=== PATIENT | female | born 1990 | race Two or more races ===

== ENCOUNTER 2019-03-05 18:07 | Inpatient (IN) | payer OTHER ==
[2019-03-05 20:16] VITALS: BMI 39.4
--- NOTE | 2019-03-05 20:47 | HP ---
COWS - Scale Resting Pulse: 0= [place] 80 or Below Sweatin= Chills/Flushing Restless Observation: 1= Difficult to Sit Still Pupil Size: 1= Pupils >than Normal Bone or Joint Aches: 2= Severe Diffuse Aches Runny Nose/ Eye Tearin= Constantly Teary/Runny GI Upset > 30mins: 1= Stomach Cramp Tremor Observation: 1= Tremor [place], Not Seen Yawning Observation: 1= 1-2x During Session Anxiety or Irritability: 4=Extreme Anxiety Goose Flesh Skin: 0=Smooth Skin COWS Score: 16 CIWA Score - Admission Criteria OASAS Guidelines: Admission for Medically Managed Detox: Requires at least one of the followin. CIWA greater than 12 2. Seizures within the past 24 hours 3. Delirium tremens within the past 24 hours 4. Hallucinations within the past 24 hours 5. Acute intervention needed for co occurring medical disorder 6. Acute intervention needed for co occurring psychiatric disorder 7. Severe withdrawal that cannot be handled at a lower level of care (continued vomiting, continued diarrhea, abnormal vital signs) requiring intravenous medication and/or fluids 8. Admission ROS [facility] Chief Complaint: withdrawal symptoms Allergies/Adverse Reactions: Allergies Allergy/AdvReac Type Severity Reaction Status Date / Time No Known Allergies Allergy Verified 03/05/19 19:58 History of Present Illness: 28 yo female, homeless, with hx of heroin IV, cocaine (IV) dependence is here seeking detox for opiate use d/t withdrawal symptoms. 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 utox positive for RADHA, FEN, MTD. [facility]. PMHX: + abscess (R) breast, LLE , asthma, anemia. Psych:PTSD, anxiety (dx at 14 yo), depression (lexapro). 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 overdose x9 , last episode seven months ago. Reports hx of falls d/t "nodding out while being high." Exam Limitations: No Limitations - Ebola screening Have you traveled outside of the country in the last 21 days: No (N) Have you had contact with anyone from an Ebola affected area: No Do you have a fever: No - Review of Systems Constitutional: Chills, Loss of Appetite, Changes in sleep (no sleep x 3 days) EENT: reports: Tearing, Nose Congestion Respiratory: reports: No Symptoms reported Cardiac: reports: No Symptoms Reported GI: reports: Poor Fluid Intake, Abdominal cramping : reports: No Symptoms Reported Musculoskeletal: reports: Back Pain Integumentary: reports: See HPI Neuro: reports: Headache, Dizziness Endocrine: reports: Flushing, Increased Thirst Hematology: reports: See HPI, Anemia Psychiatric: reports: Orientated x3, Anxious, Depressed Other Systems: Reviewed and Negative Patient History - Patient Medical History Hx Anemia: Yes (no blood transfusion ) Hx Asthma: Yes Hx Chronic Obstructive Pulmonary Disease (COPD): No Hx Cancer: No Hx Cardiac Disorders: No Hx Congestive Heart Failure: No Hx Hypertension: No Hx Hypercholesterolemia: No Hx Pacemaker: No HX Cerebrovascular Accident: No Hx Seizures: No Hx Dementia: No Hx Diabetes: No Hx Gastrointestinal Disorders: No Hx Liver Disease: No Hx Genitourinary Disorders: No Hx Sexually Transmitted Disorders: No Hx Renal Disease (ESRD): No Hx Thyroid Disease: No Hx Human Immunodeficiency Virus (HIV): No Hx Hepatitis C: No Hx Depression: Yes Hx Suicide Attempt: No Hx Bipolar Disorder: No - Patient Surgical History Past Surgical History: No - PPD History Previous Implant?: No Documented Results: Negative w/o proof PPD to be Administered?: Yes - Reproductive History Patient is a Female of Child Bearing Age (11 -55 yrs old): Yes Last Menstrual Period: 02/19/19 - Smoking Cessation Smoking history: Never smoked Have you smoked in the past 12 months: No Hx Chewing Tobacco Use: No Initiated information on smoking cessation: No - Substance & Tx. History Hx Alcohol Use: No Hx Substance Use: Yes Substance Use Type: Cocaine, Heroin Hx Substance Use Treatment: Yes (Last detox [facility] eight months ago ) - Substances abused Heroin Substance route: Injection Frequency: Daily Amount used: 15-20 BAGS Age of first use: 13 Date of last use: 03/05/19 Cocaine Substance route: Injection Frequency: Daily Amount used: 2 GRAMS Age of first use: 14 Date of last use: 03/05/19 Family Disease History - Family Disease History Family Disease History: CA: Father (), Mother (), Other: Sister ( , overdose ) Admission Physical Exam [facility] - Vital Signs Vital Signs: Vital Signs - 24 hr 03/05/19 19:54 Temperature 98.1 F Pulse Rate 74 Respiratory 18 Rate Blood Pressure 128/74 - Physical General Appearance: Yes: Appropriately Dressed, Moderate Distress, Obese, Sweating, Anxious HEENTM: Yes: Hearing grossly Normal, Normal ENT Inspection, Normocephalic, Pharynx Normal, Rhinorrhea (tearing) Respiratory: Yes: Chest Non-Tender, Lungs Clear, Normal Breath Sounds, No Respiratory Distress, No Accessory Muscle Use Neck: Yes: Within Normal Limits Breast: Yes: No Discharge, Other (abscess right breast) Cardiology: Yes: Regular Rhythm, Regular Rate Abdominal: Yes: Normal Bowel Sounds, Non Tender, Flat, Soft Genitourinary: Yes: Within Normal Limits Back: Yes: Normal Inspection Musculoskeletal: Yes: full range of Motion, Gait Steady, Pelvis Stable, Back pain Extremities: Yes: Erythema (+ abscess left lower extremity) Neurological: Yes: Fully Oriented, Alert, Motor Strength 5/5, Normal Mood/Affect , Depressed Affect (tearful during assessment) Integumentary: Yes: Normal Color, Warm, Diaphoresis Lymphatic: Yes: Within Normal Limits - Addiitonal Findings: Patient educated on safe sex practices, needle safety, and importance to connect needle exchange program. Patient to follow up with with primary care provider. - Diagnostic (1) IVDU (intravenous drug user) Current Visit: Yes Status: Acute (2) Cocaine dependence Current Visit: Yes Status: Acute Qualifiers: Substance use status: uncomplicated Qualified Code(s): F14.20 - Cocaine dependence, uncomplicated (3) Anemia Current Visit: Yes Status: Chronic Qualifiers: Anemia type: unspecified type Qualified Code(s): D64.9 - Anemia, unspecified (4) Asthma Current Visit: Yes Status: Chronic Qualifiers: Asthma severity: mild Asthma persistence: intermittent Asthma complication type: with acute exacerbation Qualified Code(s): J45.21 - Mild intermittent asthma with (acute) exacerbation (5) Opioid dependence with withdrawal Current Visit: Yes Status: Acute Cleared for Admission S - Detox or Rehab [facility] Level of Care: Medically Managed Detox Regimen/Protocol: Methadone Breathalyzer - Breathalyzer Breathalyzer: 0 POC Urine test - Test device test lot number: [id number] Expiration date: 07/26/20 - Control test control: Yes - Result Urine Test Results: Negative - NO line present Urine Drug Screen - Test Device Lot number: [id number] Expiration date: 02/23/20 - Control Is test valid?: Yes - Results Drug screen NEGATIVE: No Urine drug screen results: RADHA-Cocaine, FEN-Fentanyl, MTD-Methadone Inpatient Rehab Admission - Rehab Decision to Admit Inpatient rehab admission?: No
[2019-03-05] MEDS ORDERED: MENTHOL/PHENOL 1 EACH UD MM PRN (20:52)
[2019-03-05] MEDS ORDERED: MAGNESIUM CITRATE 300 ML BOTTLE PO PRN (20:52)
[2019-03-05] MEDS ORDERED: MELATONIN 5 MG TABLETS PO PRN (20:52)
[2019-03-05] MEDS ORDERED: ACETAMINOPHEN 325 MG TABLET (FP) PO PRN (20:52)
[2019-03-05] MEDS ORDERED: MAG HYDROX/AL HYDROX/SIMETH 30 ML UNIT-DOSE CUP PO PRN (20:52)
[2019-03-05] MEDS ORDERED: BISMUTH SUBSALICYLATE 524 MG/30 ML UD PO PRN (20:52)
[2019-03-05] MEDS ORDERED: MAGNESIUM HYDROX 2400MG/30ML ORAL SUSPENSION 30 ML CUP PO PRN (20:52)
[2019-03-05] MEDS ORDERED: IBUPROFEN 400 MG TABLET (FP) PO PRN (20:52)
[2019-03-05] MEDS ORDERED: METHOCARBAMOL 500 MG TABLET PO PRN (20:52)
[2019-03-05] MEDS ORDERED: METHADONE HCL 10 MG TABLET (FOR DETOX USE ONLY) PO ONE ×2 (20:55→23:00)
[2019-03-05] MEDS: CEPHALEXIN MONOHYDRATE 500 MG CAPSULE (UD) PO SCH (21:49)
[2019-03-05] MEDS: THIAMINE HCL 100 MG TABLET (FP) PO SCH (21:49)
[2019-03-05] MEDS: BACITRACIN 0.9 GM PACKET TP SCH (21:51)
[2019-03-05] MEDS: cloNIDine HCL 0.1 MG TABLET PO PRN (21:57)
[2019-03-05] MEDS: diazePAM 5 MG TABLET PO PRN (21:57)
[2019-03-05] MEDS: ACETAMINOPHEN 325 MG TABLET (FP) PO PRN (21:59)
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
[2019-03-06] MEDS ORDERED: METHADONE HCL 10 MG TABLET (FOR DETOX USE ONLY) PO ONE (10:00)
[2019-03-06] MEDS: CEPHALEXIN MONOHYDRATE 500 MG CAPSULE (UD) PO SCH ×2 (10:13→22:19)
[2019-03-06] MEDS: PRENATAL VITAMINS W/ FOLIC ACID TABLET (FP) PO SCH (10:13)
[2019-03-06] MEDS: BACITRACIN 0.9 GM PACKET TP SCH ×2 (10:13→22:19)
[2019-03-06] MEDS: diazePAM 5 MG TABLET PO PRN ×2 (10:13→22:22)
[2019-03-06] MEDS: cloNIDine HCL 0.1 MG TABLET PO PRN ×2 (10:16→22:22)
[2019-03-06 10:18] LABS: HEMATOCRIT 31.2 % (32.4-45.2); HEMOGLOBIN 9.4 GM/dL (10.7-15.3); MCHC 30.2 g/dl (32.0-36.0); MEAN CELL VOLUME 58.4 fl (80-96); MEAN PLT VOLUME 9.3 fl (7.5-11.1); PLATELET COUNT 432 K/MM3 (134-434); RBC 5.35 M/mm3 (3.60-5.2); RDW 18.8 % (11.6-15.6); WHITE BLOOD COUNT 9.4 K/mm3 (4.0-10.0)
[2019-03-06 10:31] LABS: ALBUMIN 2.9 g/dl (3.4-5.0); ALK PHOS 137 U/L (45-117); ANION GAP 3 MMOL/L (8-16); BILIRUBIN,TOTAL 0.5 mg/dL (0.2-1); BLOOD UREA NITROGEN 18 mg/dL (7-18); CALCIUM 8.6 mg/dL (8.5-10.1); CHLORIDE 107 mmol/L (98-107); CO2 29 mmol/L (21-32); CREATININE 0.5 mg/dL (0.55-1.3); GLUCOSE,RANDOM 81 mg/dL (74-106); SGOT/AST 100 U/L (15-37); SGPT/ALT 110 U/L (13-61); SODIUM 139 mmol/L (136-145); TOT PROT 6.8 g/dl (6.4-8.2)
[2019-03-06 10:43] LABS: MCH 17.7 pg (25.7-33.7)
--- NOTE | 2019-03-06 14:46 | PN ---
S COWS - Scale Resting Pulse: 0= [place] 80 or Below Sweatin= Chills/Flushing Restless Observation: 1= Difficult to Sit Still Pupil Size: 1= Pupils >than Normal Bone or Joint Aches: 1= Mild Discomfort Runny Nose/ Eye Tearin= Nasal Congestion GI Upset > 30mins: 1= Stomach Cramp Tremor Observation of Outstretched Hands: 2= Slight Tremor Visible Yawning Observation: 2= >3x During Session Anxiety or Irritability: 2=Irritable/Anxious Goose Flesh Skin: 0=Smooth Skin COWS Score: 12 S Progress Note (SOAP) Subjective: discuss medication assisted treatment maintenance program Objective: 03/06/19 14:43 Vital Signs Temperature 98.6 F 03/06/19 13:24 Pulse Rate 75 03/06/19 13:24 Respiratory Rate 16 03/06/19 13:24 Blood Pressure 105/65 03/06/19 13:24 O2 Sat by Pulse Oximetry (%) Laboratory Last Values WBC 9.4 K/mm3 (4.0-10.0) 03/06/19 07:00 RBC 5.35 M/mm3 (3.60-5.2) H 03/06/19 07:00 Hgb 9.4 GM/dL (10.7-15.3) L 03/06/19 07:00 Hct 31.2 % (32.4-45.2) L 03/06/19 07:00 MCV 58.4 fl (80-96) L 03/06/19 07:00 MCH 17.7 pg (25.7-33.7) L 03/06/19 07:00 MCHC 30.2 g/dl (32.0-36.0) L 03/06/19 07:00 RDW 18.8 % (11.6-15.6) H 03/06/19 07:00 Plt Count 432 K/MM3 (134-434) 03/06/19 07:00 MPV 9.3 fl (7.5-11.1) 03/06/19 07:00 Sodium 139 mmol/L (136-145) 03/06/19 07:00 Potassium 4.0 mmol/L (3.5-5.1) 03/06/19 07:00 Chloride 107 mmol/L (98-107) 03/06/19 07:00 Carbon Dioxide 29 mmol/L (21-32) 03/06/19 07:00 Anion Gap 3 MMOL/L (8-16) L 03/06/19 07:00 BUN 18 mg/dL (7-18) 03/06/19 07:00 Creatinine 0.5 mg/dL (0.55-1.3) L 03/06/19 07:00 Creat Clearance w eGFR 145.87 (>60) 03/06/19 07:00 Random Glucose 81 mg/dL (74-106) 03/06/19 07:00 Calcium 8.6 mg/dL (8.5-10.1) 03/06/19 07:00 Total Bilirubin 0.5 mg/dL (0.2-1) 03/06/19 07:00 AST 100 U/L (15-37) H 03/06/19 07:00 ALT 110 U/L (13-61) H 03/06/19 07:00 Alkaline Phosphatase 137 U/L (45-117) H 03/06/19 07:00 Total Protein 6.8 g/dl (6.4-8.2) 03/06/19 07:00 Albumin 2.9 g/dl (3.4-5.0) L 03/06/19 07:00 RPR Titer Nonreactive (NONREACTIVE) 03/06/19 07:00 HIV 1&2 Antibody Screen Negative 03/06/19 07:00 HIV P24 Antigen Negative 03/06/19 07:00 lab noted repeat ast Assessment: 03/06/19 14:49 opiate withdrawal sx Plan: continue detox
[2019-03-06] MEDS: QUEtiapine FUMARATE 50 MG TABLET PO SCH (22:19)
[2019-03-06] MEDS: THIAMINE HCL 100 MG TABLET (FP) PO SCH (22:19)
[2019-03-06] MEDS: ACETAMINOPHEN 325 MG TABLET (FP) PO PRN (22:24)
[2019-03-07] MEDS ORDERED: METHADONE HCL 10 MG TABLET (FOR DETOX USE ONLY) PO ONE (10:00)
[2019-03-07] MEDS: CEPHALEXIN MONOHYDRATE 500 MG CAPSULE (UD) PO SCH ×2 (10:18→22:14)
[2019-03-07] MEDS: diazePAM 5 MG TABLET PO PRN ×3 (10:18→22:14)
[2019-03-07] MEDS: cloNIDine HCL 0.1 MG TABLET PO PRN ×2 (10:18→17:12)
[2019-03-07] MEDS: PRENATAL VITAMINS W/ FOLIC ACID TABLET (FP) PO SCH (10:18)
[2019-03-07] MEDS: BACITRACIN 0.9 GM PACKET TP SCH ×2 (10:18→22:14)
--- NOTE | 2019-03-07 16:50 | PN ---
S COWS - Scale Resting Pulse: 2= [place] 101-120 Sweatin= Chills/Flushing Restless Observation: 0= Sits Still Pupil Size: 0= Normal to Room Light Bone or Joint Aches: 2= Severe Diffuse Aches Runny Nose/ Eye Tearin= None GI Upset > 30mins: 0= None Tremor Observation of Outstretched Hands: 0= None Yawning Observation: 1= 1-2x During Session Anxiety or Irritability: 2=Irritable/Anxious Goose Flesh Skin: 3=Piloerection COWS Score: 11 S Progress Note (SOAP) Subjective: Fatigue, Anxious, Body Aches, Interrupted Sleep. Objective: PATIENT A & O X 3. IN NO ACUTE DISTRESS. 03/07/19 16:49 Vital Signs Temperature 98.0 F 03/07/19 13:15 Pulse Rate 97 H 03/07/19 13:15 Respiratory Rate 18 03/07/19 13:15 Blood Pressure 122/71 03/07/19 13:15 O2 Sat by Pulse Oximetry (%) Laboratory Tests 03/06/19 03/06/19 03/06/19 07:00 07:00 07:00 WBC 9.4 RBC 5.35 H Hgb 9.4 L Hct 31.2 L MCV 58.4 L MCH 17.7 L MCHC 30.2 L RDW 18.8 H Plt Count 432 MPV 9.3 Sodium 139 Potassium 4.0 Chloride 107 Carbon Dioxide 29 Anion Gap 3 L BUN 18 Creatinine 0.5 L Creat Clearance w eGFR 145.87 Random Glucose 81 Calcium 8.6 Total Bilirubin 0.5 AST 100 H ALT 110 H Alkaline Phosphatase 137 H Total Protein 6.8 Albumin 2.9 L RPR Titer Hep C Ab Diagnostic HIV 1&2 Antibody Screen Negative HIV P24 Antigen Negative 03/06/19 03/06/19 03/07/19 07:00 07:00 07:00 WBC RBC Hgb Hct MCV MCH MCHC RDW Plt Count MPV Sodium Potassium Chloride Carbon Dioxide Anion Gap BUN Creatinine Creat Clearance w eGFR Random Glucose Calcium Total Bilirubin AST 88 H ALT Alkaline Phosphatase Total Protein Albumin RPR Titer Nonreactive Hep C Ab Diagnostic 0.9 HIV 1&2 Antibody Screen HIV P24 Antigen LABS NOTED. PATIENT REPORTED HISTORY OF ANEMIA ON ADMISSION TO DETOX. 03/07/19 16:50 Assessment: 03/07/19 16:49 WITHDRAWAL SYMPTOMS. Plan: CONTINUE DETOX. INCREASE DAILY PO FLUID INTAKE. FEOSOL, 325 MG PO TIDCM. REPEAT CBC TOMORROW AM FOR ANEMIA NOTED ON DETOX ADMISSION LABS.
[2019-03-07] MEDS: FERROUS SO4 325 MG TABLET (FP) PO SCH (17:12)
[2019-03-07] MEDS: ACETAMINOPHEN 325 MG TABLET (FP) PO PRN (17:12)
[2019-03-07] MEDS: QUEtiapine FUMARATE 50 MG TABLET PO SCH (22:14)
[2019-03-07] MEDS: THIAMINE HCL 100 MG TABLET (FP) PO SCH (22:14)
[2019-03-08] MEDS: diazePAM 5 MG TABLET PO PRN (05:46)
[2019-03-08] MEDS: ACETAMINOPHEN 325 MG TABLET (FP) PO PRN (05:47)
[2019-03-08] MEDS: PRENATAL VITAMINS W/ FOLIC ACID TABLET (FP) PO SCH (09:19)
[2019-03-08] MEDS: BACITRACIN 0.9 GM PACKET TP SCH (09:19)
[2019-03-08] MEDS: FERROUS SO4 325 MG TABLET (FP) PO SCH (09:19)
[2019-03-08] MEDS: CEPHALEXIN MONOHYDRATE 500 MG CAPSULE (UD) PO SCH (09:19)
[2019-03-08 09:41] VITALS: BP 116/69; PULSE 96; TEMP 96.8
[2019-03-08] MEDS ORDERED: METHADONE HCL 10 MG TABLET (FOR DETOX USE ONLY) PO ONE (10:00)
--- NOTE | 2019-03-08 14:41 | PN ---
[facility] Progress Note (SOAP) Subjective: Fatigue, Body Aches, Anxious, Interrupted Sleep. Objective: PATIENT A & O X 3, OBSERVED AMBULATING ON UNIT. IN NO ACUTE DISTRESS. 03/08/19 14:42 Vital Signs Temperature 96.8 F L 03/08/19 09:20 Pulse Rate 96 H 03/08/19 09:20 Respiratory Rate 18 03/08/19 09:20 Blood Pressure 116/69 03/08/19 09:20 O2 Sat by Pulse Oximetry (%) Laboratory Tests 03/06/19 03/06/19 03/06/19 07:00 07:00 07:00 WBC 9.4 RBC 5.35 H Hgb 9.4 L Hct 31.2 L MCV 58.4 L MCH 17.7 L MCHC 30.2 L RDW 18.8 H Plt Count 432 MPV 9.3 Sodium 139 Potassium 4.0 Chloride 107 Carbon Dioxide 29 Anion Gap 3 L BUN 18 Creatinine 0.5 L Creat Clearance w eGFR 145.87 Random Glucose 81 Calcium 8.6 Total Bilirubin 0.5 AST 100 H ALT 110 H Alkaline Phosphatase 137 H Total Protein 6.8 Albumin 2.9 L RPR Titer Hep C Ab Diagnostic HIV 1&2 Antibody Screen Negative HIV P24 Antigen Negative 03/06/19 03/06/19 03/07/19 07:00 07:00 07:00 WBC RBC Hgb Hct MCV MCH MCHC RDW Plt Count MPV Sodium Potassium Chloride Carbon Dioxide Anion Gap BUN Creatinine Creat Clearance w eGFR Random Glucose Calcium Total Bilirubin AST 88 H ALT Alkaline Phosphatase Total Protein Albumin RPR Titer Nonreactive Hep C Ab Diagnostic 0.9 HIV 1&2 Antibody Screen HIV P24 Antigen LABS NOTED. PATIENT REFUSED TO HAVE REPEAT CBC DRAWN EARLIER THIS AM. PATIENT REPORTS HISTORY OF ANEMIA. 03/08/19 14:43 Assessment: 03/08/19 14:42 WITHDRAWAL SYMPTOMS. ANEMIA. ELEVATED LIVER ENZYMES. 03/08/19 14:44 Plan: CONTINUE DETOX. CONTINUE FEOSOL TIDCM.
--- NOTE | 2019-03-08 14:50 | DS ---
[facility] Detox Discharge Summary Admission Date: 03/05/19 Discharge Date: 03/08/19 - History Present History: Cocaine Dependence, Opioid Dependence Additional Comments: DESPITE EFFORTS BY CONTRACTS LAW PROFESSOR AND BY NURSING STAFF TO ADDRESS PATIENT'S MEDICAL NEEDS / CONCERNS, PATIENT DOES NOT WISH TO REMAIN TO COMPLETE DETOX REGIMEN. PATIENT NOTES THAT SHE INSISTS ON LEAVING BECAUSE OTHER PATIENT ON DETOX UNIT WHO IS BEING DISCHARGED TODAY IS LEAVING AND SHE WILL NOT REMAIN ON DETOX UNIT WITHOUT HIM THERE. RISKS OF LEAVING DETOX UNIT AGAINST MEDICAL ADVICE AND PRIOR TO COMPLETION OF DETOX REGIMEN EXPLAINED TO PATIENT. PATIENT ADVISED TO GO IMMEDIATELY TO NEAREST ER SHOULD ANY INTOLERABLE WITHDRAWAL / DETOX SYMPTOMS DEVELOP AT ANY TIME. PRESCRIPTIONS FOR REMAINDER OF FULL COURSE OF ANTIBIOTIC ( KEFLEX) PRESCRIBED FOR PATIENT FOR ABSCESS OF BREAST WHILE SHE WAS ADMITTED FOR DETOX AND FOLLOW-UP [id number] FOR FEOSOL (PRESCRIBED FOR ANEMIA NOTED ON DETOX ADMISSION LAB ASSESSMENT SENT TO [facility], [place], [place] (AT PATIENT'S REQUEST). PATIENT ADVISED TO COMPLETE THE FULL COURSE OF BOTH MEDICATIONS AND TO FOLLOW-UP WITH SPRAY MAKER SOON POSSIBLE FOR HISTORY OF BREAST ABSCESS, FOR ELAVTED LIVER ENZYMES NOTED ON DETOX ADMISSION LABORATORY ASSESSMENT, AND FOR HISTORY OF ANEMIA. PATIENT VERBALIZED UNDERSTANDING OF ALL INFORMATION / RECOMMENDATIONS PRESENTED TO HER PRIOR TO DEPARTURE FROM DETOX UNIT. COPIES OF RESULTS OF ALL LABS DRAWN WHILE ADMITTED FOR DETOX GIVEN TO PATIENT AT TIME OF DISCHARGE FROM DETOX UNIT. PATIENT LEFT DETOX UNIT IN STABLE MEDICAL CONDITION. Pertinent Past History: History Of Anemia, Asthma, Intravenous Drug User (I.V.D.U.), History of Depression, Elevated Liver Enzymes. - Physical Exam Results Vital Signs: Vital Signs Temperature 96.8 F L 03/08/19 09:20 Pulse Rate 96 H 03/08/19 09:20 Respiratory Rate 18 03/08/19 09:20 Blood Pressure 116/69 03/08/19 09:20 O2 Sat by Pulse Oximetry (%) Pertinent Admission Physical Exam Findings: WITHDRAWAL SYMPTOMS. Laboratory Tests 03/06/19 03/06/19 03/06/19 07:00 07:00 07:00 WBC 9.4 RBC 5.35 H Hgb 9.4 L Hct 31.2 L MCV 58.4 L MCH 17.7 L MCHC 30.2 L RDW 18.8 H Plt Count 432 MPV 9.3 Sodium 139 Potassium 4.0 Chloride 107 Carbon Dioxide 29 Anion Gap 3 L BUN 18 Creatinine 0.5 L Creat Clearance w eGFR 145.87 Random Glucose 81 Calcium 8.6 Total Bilirubin 0.5 AST 100 H ALT 110 H Alkaline Phosphatase 137 H Total Protein 6.8 Albumin 2.9 L RPR Titer Hep C Ab Diagnostic HIV 1&2 Antibody Screen Negative HIV P24 Antigen Negative 03/06/19 03/06/19 03/07/19 07:00 07:00 07:00 WBC RBC Hgb Hct MCV MCH MCHC RDW Plt Count MPV Sodium Potassium Chloride Carbon Dioxide Anion Gap BUN Creatinine Creat Clearance w eGFR Random Glucose Calcium Total Bilirubin AST 88 H ALT Alkaline Phosphatase Total Protein Albumin RPR Titer Nonreactive Hep C Ab Diagnostic 0.9 HIV 1&2 Antibody Screen HIV P24 Antigen LABS NOTED. - Treatment Hospital Course: Detox Protocol Followed, Detoxed Safely - Medication Discharge Medications: Ambulatory Orders Cephalexin [Keflex] 500 mg PO BID 7 Days #14 capsule 03/08/19 Ferrous Sulfate [Feosol] 325 mg PO BID 7 Days #14 tablet 03/08/19 Naloxone HCl [Narcan] 4 mg NS ASDIR #1 kit 03/08/19 - Diagnosis (1) Cocaine dependence Status: Acute Qualifiers: Substance use status: uncomplicated Qualified Code(s): F14.20 - Cocaine dependence, uncomplicated (2) Elevated liver enzymes Status: Acute (3) IVDU (intravenous drug user) Status: Acute (4) Opioid dependence with withdrawal Status: Acute (5) Anemia Status: Chronic Qualifiers: Anemia type: unspecified type Qualified Code(s): D64.9 - Anemia, unspecified (6) Asthma Status: Chronic Qualifiers: Asthma severity: mild Asthma persistence: intermittent Asthma complication type: with acute exacerbation Qualified Code(s): J45.21 - Mild intermittent asthma with (acute) exacerbation (7) Substance induced mood disorder Status: Acute (8) Substance-induced sleep disorder Status: Acute - AMA Did Patient Leave Against Medical Advice: Yes (PATIENT DID NOT WISH TO REMAIN TO COMPLETE DETOX REGIMEN.)
[2019-03-09] MEDS ORDERED: METHADONE HCL 5 MG TABLET (FOR DETOX USE ONLY) PO ONE (06:00)
== END 2019-03-08 09:30 | disposition left against medical advice (07) | DRG 770 ==
LOC: YASAS 18:07 → Y3N 21:07
PROVIDERS: ADMIT Surgery; ATTEND Surgery
PROC: HZ2ZZZZ Detoxification Services for Substance Abuse Treatment (ICD-10-PCS; principal; 2019-03-05)
DX: F11.23 Opioid dependence with withdrawal (principal); F14.20 Cocaine dependence, uncomplicated; F19.24 Other psychoactive substance dependence with psychoactive substance-induced mood disorder; F19.282 Other psychoactive substance dependence with psychoactive substance-induced sleep disorder; J45.21 Mild intermittent asthma with (acute) exacerbation; R94.5 Abnormal results of liver function studies; D64.9 Anemia, unspecified; E66.9 Obesity, unspecified; Z68.39 Body mass index [BMI] 39.0-39.9, adult; Z59.0 Homelessness
CPT/HCPCS: 36415; 80053; 84450; 85027; 86593; 86803; 87389; J0735

== ENCOUNTER 2019-06-15 12:50 | Inpatient (IN) | payer BC ==
[2019-06-15 13:35] VITALS: BMI 42.5
--- NOTE | 2019-06-15 15:10 | HP ---
COWS - Scale Resting Pulse: 2= [place] 101-120 Sweatin=Flushed/Facial Moisture Restless Observation: 1= Difficult to Sit Still Pupil Size: 2= Moderately Dilated Bone or Joint Aches: 2= Severe Diffuse Aches Runny Nose/ Eye Tearin= Runny Nose/Eyes GI Upset > 30mins: 1= Stomach Cramp Tremor Observation: 2= Slight Tremor Visible Yawning Observation: 0= None Anxiety or Irritability: 2=Irritable/Anxious Goose Flesh Skin: 0=Smooth Skin COWS Score: 16 CIWA Score Nausea/Vomitin Muscle Tremors: 2 Anxiety: 3 Agitation: 2 Paroxysmal Sweats: 3 Orientation: 0-Oriented Tacttile Disturbances: 0-None Auditory Disturbances: 0-None Visual Disturbances: 1-Very Mild Sensitivity Headache: 2-Mild CIWA-Ar Total Score: 16 - Admission Criteria [facility] Guidelines: Admission for Medically Managed Detox: Requires at least one of the followin. CIWA greater than 12 2. Seizures within the past 24 hours 3. Delirium tremens within the past 24 hours 4. Hallucinations within the past 24 hours 5. Acute intervention needed for co occurring medical disorder 6. Acute intervention needed for co occurring psychiatric disorder 7. Severe withdrawal that cannot be handled at a lower level of care (continued vomiting, continued diarrhea, abnormal vital signs) requiring intravenous medication and/or fluids 8. 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 - Ebola screening Have you traveled outside of the country in the last 21 days: No (N) Have you had contact with anyone from an Ebola affected area: No Do you have a fever: No - Review of Systems Constitutional: Loss of Appetite, Changes in sleep EENT: reports: Tearing Respiratory: reports: No Symptoms reported Cardiac: reports: No Symptoms Reported GI: reports: Abdominal cramping : reports: No Symptoms Reported Musculoskeletal: reports: Muscle Pain Integumentary: reports: Other (MULTIPLE INDURATED EERYTHEMATOUS LESIONS) Endocrine: reports: No Symptoms Reported Hematology: reports: No Symptoms Reported Psychiatric: reports: Anxious Patient History - Patient Medical History Hx Anemia: Yes (no blood transfusion ) Hx Asthma: Yes Hx Chronic Obstructive Pulmonary Disease (COPD): No Hx Cancer: No Hx Cardiac Disorders: No Hx Congestive Heart Failure: No Hx Hypertension: No Hx Hypercholesterolemia: No Hx Pacemaker: No HX Cerebrovascular Accident: No Hx Seizures: No Hx Dementia: No Hx Diabetes: No Hx Gastrointestinal Disorders: No Hx Liver Disease: No Hx Genitourinary Disorders: No Hx Sexually Transmitted Disorders: No Hx Renal Disease (ESRD): No Hx Thyroid Disease: No Hx Human Immunodeficiency Virus (HIV): No Hx Hepatitis C: No Hx Depression: Yes Hx Suicide Attempt: No Hx Bipolar Disorder: Yes Hx Schizophrenia: No - Patient Surgical History Past Surgical History: No Hx Neurologic Surgery: No Hx Cataract Extraction: No Hx Cardiac Surgery: No Hx Lung Surgery: No Hx Breast Surgery: No Hx Breast Biopsy: No Hx Abdominal Surgery: No Hx Appendectomy: No Hx Cholecystectomy: No Hx Genitourinary Surgery: No Hx Section: No Hx Orthopedic Surgery: No - PPD History Date: 03/07/19 - Reproductive History Patient is a Female of Child Bearing Age (11 -55 yrs old): Yes Last Menstrual Period: 06/09/19 Patient : No () - Smoking Cessation Smoking history: Never smoked Have you smoked in the past 12 months: No Hx Chewing Tobacco Use: No - Substances abused Heroin Substance route: Injection Frequency: Daily Amount used: 10-15 BAGS Age of first use: 13 Date of last use: 06/15/19 Cocaine Substance route: Injection Frequency: Daily Amount used: 2 GRAMS Age of first use: 14 Date of last use: 06/15/19 Alprazolam (Xanax) Substance route: Oral Frequency: Daily Amount used: 6-10 bars of 2mg Age of first use: 14 Date of last use: 06/14/19 Family Disease History - Family Disease History Family Disease History: CA: Father (), Mother (), Other: Sister ( , overdose ) Admission Physical Exam BHS - Vital Signs Vital Signs: Vital Signs - 24 hr 06/15/19 06/15/19 13:20 14:42 Temperature 98.0 F 98.0 F Pulse Rate 108 H 108 H Respiratory 18 18 Rate Blood Pressure 126/80 126/80 - Physical General Appearance: Yes: Sweating, Anxious HEENTM: Yes: EOMI Respiratory: Yes: Chest Non-Tender, Lungs Clear Neck: Yes: No masses,lesions,Nodules Breast: Yes: Mass Present right breast Cardiology: Yes: Within Normal Limits Abdominal: Yes: Increased Bowel Sounds Genitourinary: Yes: Within Normal Limits Back: Yes: Muscle Spasm Musculoskeletal: Yes: Within Normal Limits Extremities: Yes: Other Integumentary: Yes: Track [place] (DIFFUSE ABCESS MISS AND INJECTION SITE INFLAMMATION, DRAINAGE FROM BL AC FOSSAE) Lymphatic: Yes: Within Normal Limits - Diagnostic (1) Cocaine dependence Current Visit: Yes Status: Acute Qualifiers: Substance use status: uncomplicated Qualified Code(s): F14.20 - Cocaine dependence, uncomplicated (2) Elevated liver enzymes Current Visit: No Status: Chronic (3) IVDU (intravenous drug user) Current Visit: Yes Status: Acute (4) Opioid dependence with withdrawal Current Visit: Yes Status: Acute (5) Abscess Current Visit: Yes Status: Acute Cleared for Admission S - Detox or Rehab [facility] Level of Care: Medically Supervised Breathalyzer - Breathalyzer Breathalyzer: 0 POC Urine test - Test device test lot number: [id number] Expiration date: 07/26/20 - Control test control: Yes Urine Drug Screen - Test Device Lot number: [id number] Expiration date: 03/25/21 - Control Is test valid?: Yes - Results Drug screen NEGATIVE: No Urine drug screen results: RADHA-Cocaine, FEN-Fentanyl, BZO-Benzodiazepines, BUP- Suboxone Inpatient Rehab Admission - Rehab Decision to Admit Inpatient rehab admission?: No
[2019-06-15] MEDS ORDERED: MAGNESIUM CITRATE 300 ML BOTTLE PO PRN (15:26)
[2019-06-15] MEDS ORDERED: MAGNESIUM HYDROX 2400MG/30ML ORAL SUSPENSION 30 ML CUP PO PRN (15:26)
[2019-06-15] MEDS ORDERED: METHADONE HCL 10 MG TABLET (FOR DETOX USE ONLY) PO ONE (15:26)
[2019-06-15] MEDS ORDERED: MENTHOL/PHENOL 1 EACH UD MM PRN (15:26)
[2019-06-15] MEDS ORDERED: MAG HYDROX/AL HYDROX/SIMETH 30 ML UNIT-DOSE CUP PO PRN (15:26)
[2019-06-15] MEDS ORDERED: ACETAMINOPHEN 325 MG TABLET (FP) PO PRN ×2 (15:26)
[2019-06-15] MEDS ORDERED: hydrOXYzine PAMOATE 25 MG CAPSULE (FP) PO PRN (15:26)
[2019-06-15] MEDS ORDERED: cloNIDine HCL 0.1 MG TABLET PO PRN (15:26)
[2019-06-15] MEDS ORDERED: BISMUTH SUBSALICYLATE 524 MG/30 ML UD PO PRN (15:26)
[2019-06-15] MEDS: diazePAM 5 MG TABLET PO PRN (16:56)
[2019-06-15] MEDS: GABAPENTIN 300 MG CAPSULE (FP) PO SCH ×2 (16:56→22:45)
[2019-06-15] MEDS: BACITRACIN 0.9 GM PACKET TP SCH ×2 (16:56→22:51)
[2019-06-15] MEDS: THIAMINE HCL 100 MG TABLET (FP) PO SCH (22:44)
[2019-06-15] MEDS: diazePAM 5 MG TABLET PO SCH (22:45)
[2019-06-15] MEDS: SULFAMETHOXAZOLE/TRIMETHOPRIM 800MG/160MG D.S. TABLET PO SCH (22:45)
[2019-06-15] MEDS: MELATONIN 5 MG TABLETS PO PRN (22:46)
[2019-06-15] MEDS: IBUPROFEN 400 MG TABLET (FP) PO PRN (22:47)
[2019-06-16] MEDS: diazePAM 5 MG TABLET PO SCH ×3 (06:09→21:49)
[2019-06-16] MEDS: IBUPROFEN 400 MG TABLET (FP) PO PRN (06:09)
[2019-06-16] MEDS: GABAPENTIN 300 MG CAPSULE (FP) PO SCH ×3 (06:09→21:49)
[2019-06-16] MEDS ORDERED: METHADONE HCL 10 MG TABLET (FOR DETOX USE ONLY) ONE (08:45)
[2019-06-16] MEDS ORDERED: METHADONE HCL 5 MG TABLET (FOR DETOX USE ONLY) ONE (08:45)
--- NOTE | 2019-06-16 09:38 | PN ---
S CIWA - CIWA Score Nausea/Vomitin-Mild Nausea/No Vomiting Muscle Tremors: 3 Anxiety: 3 Agitation: 3 Paroxysmal Sweats: 1-Minimal Palms Moist Orientation: 1-Uncertain about Date Tacttile Disturbances: 1-Very Mild Itch/Numbness Auditory Disturbances: 0-None Visual Disturbances: 0-None Headache: 0-None Present CIWA-Ar Total Score: 13 BHS COWS - Scale Resting Pulse: 0= [place] 80 or Below Sweatin= Chills/Flushing Restless Observation: 0= Sits Still Pupil Size: 0= Normal to Room Light Bone or Joint Aches: 1= Mild Discomfort Runny Nose/ Eye Tearin= Nasal Congestion GI Upset > 30mins: 1= Stomach Cramp Tremor Observation of Outstretched Hands: 2= Slight Tremor Visible Yawning Observation: 2= >3x During Session Anxiety or Irritability: 2=Irritable/Anxious Goose Flesh Skin: 3=Piloerection COWS Score: 13 S Progress Note (SOAP) Subjective: 29 years old female admitted on 06/15/19 for acute benzo and opiate withdrawal sx management \doing well with valium and methadone detox regimen discuss medication assisted treatment program Objective: 06/16/19 09:38 Vital Signs Temperature 97.1 F L 06/16/19 07:50 Pulse Rate 75 06/16/19 07:50 Respiratory Rate 20 06/16/19 07:50 Blood Pressure 101/66 06/16/19 07:50 O2 Sat by Pulse Oximetry (%) Laboratory Last Values POC Urine HCG, Qual Negative 06/15/19 14:43 06/16/19 09:39 admission lab ordered for 06/16/19 06/16/19 09:40 02/2019 lab noted Assessment: 06/16/19 09:41 benzo and opiate withdrawal sx Plan: continue benzo and opiate detox
[2019-06-16] MEDS ORDERED: METHADONE (DETOX) 20 MG, METHADONE (DETOX) 5 MG PO ONE (10:00)
[2019-06-16] MEDS: diazePAM 5 MG TABLET PO PRN (10:35)
[2019-06-16] MEDS: SULFAMETHOXAZOLE/TRIMETHOPRIM 800MG/160MG D.S. TABLET PO SCH ×2 (10:35→21:49)
[2019-06-16] MEDS: PRENATAL VITAMINS W/ FOLIC ACID TABLET (FP) PO SCH (10:35)
[2019-06-16] MEDS: BACITRACIN 0.9 GM PACKET TP SCH ×2 (10:36→21:51)
[2019-06-16] MEDS: THIAMINE HCL 100 MG TABLET (FP) PO SCH (21:49)
[2019-06-16] MEDS: MELATONIN 5 MG TABLETS PO PRN (21:50)
[2019-06-16 22:01] LABS: URINE APPEARANCE TURBID; URINE BILIRUBIN NEGATIVE (NEGATIVE); URINE COLOR YELLOW; URINE GLUCOSE (UA) NEGATIVE (NEGATIVE); URINE KETONE NEGATIVE (NEGATIVE); URINE LEUK ESTERASE NEGATIVE (NEGATIVE); URINE NITRITE NEGATIVE (NEGATIVE); URINE PROTEIN NEGATIVE (NEGATIVE)
[2019-06-17] MEDS: diazePAM 5 MG TABLET PO SCH ×2 (05:17→17:21)
[2019-06-17] MEDS: GABAPENTIN 300 MG CAPSULE (FP) PO SCH ×3 (05:17→22:09)
[2019-06-17] MEDS ORDERED: METHADONE HCL 10 MG TABLET (FOR DETOX USE ONLY) PO ONE (10:00)
--- NOTE | 2019-06-17 10:33 | PN ---
S CIWA - CIWA Score Nausea/Vomitin-Mild Nausea/No Vomiting Muscle Tremors: 3 Anxiety: 2 Agitation: 3 Paroxysmal Sweats: 1-Minimal Palms Moist Orientation: 0-Oriented Tacttile Disturbances: 0-None Auditory Disturbances: 0-None Visual Disturbances: 0-None Headache: 0-None Present CIWA-Ar Total Score: 10 BHS COWS - Scale Resting Pulse: 0= [place] 80 or Below Sweatin= Chills/Flushing Restless Observation: 0= Sits Still Pupil Size: 0= Normal to Room Light Bone or Joint Aches: 1= Mild Discomfort Runny Nose/ Eye Tearin= Nasal Congestion GI Upset > 30mins: 1= Stomach Cramp Tremor Observation of Outstretched Hands: 2= Slight Tremor Visible Yawning Observation: 2= >3x During Session Anxiety or Irritability: 2=Irritable/Anxious Goose Flesh Skin: 0=Smooth Skin COWS Score: 10 S Progress Note (SOAP) Subjective: 29 years old female admitted on 06/16/19 for acute opiate and benzo withdrawal sx management doing well with valium and methadone detox regimen less tremor mild body aches discuss aftercare with staff that prefers vip for benzo and opiate recovery discuss medication assisted treatment program Objective: 06/17/19 10:35 Vital Signs Temperature 98.4 F 06/17/19 09:33 Pulse Rate 64 06/17/19 09:33 Respiratory Rate 18 06/17/19 09:33 Blood Pressure 122/70 06/17/19 09:33 O2 Sat by Pulse Oximetry (%) Laboratory Last Values Urine Color Yellow 06/16/19 15:50 Urine Appearance Turbid 06/16/19 15:50 Urine pH 8.0 (5.0-8.0) 06/16/19 15:50 Ur Specific [place] 1.020 (1.010-1.035) 06/16/19 15:50 Urine Protein Negative (NEGATIVE) 06/16/19 15:50 Urine Glucose (UA) Negative (NEGATIVE) 06/16/19 15:50 Urine Ketones Negative (NEGATIVE) 06/16/19 15:50 Urine Blood Negative (NEGATIVE) 06/16/19 15:50 Urine Nitrite Negative (NEGATIVE) 06/16/19 15:50 Urine Bilirubin Negative (NEGATIVE) 06/16/19 15:50 Urine Urobilinogen 1.0 mg/dL (0.2-1.0) 06/16/19 15:50 Ur Leukocyte Esterase Negative (NEGATIVE) 06/16/19 15:50 POC Urine HCG, Qual Negative 06/15/19 14:43 06/17/19 10:36 lab see 02/2019 result Assessment: 06/17/19 10:36 benzo and opiate withdrawal sx Plan: continue benzo and opiate detox
[2019-06-17] MEDS: PRENATAL VITAMINS W/ FOLIC ACID TABLET (FP) PO SCH (10:53)
[2019-06-17] MEDS: SULFAMETHOXAZOLE/TRIMETHOPRIM 800MG/160MG D.S. TABLET PO SCH ×2 (10:54→22:09)
[2019-06-17] MEDS: diazePAM 5 MG TABLET PO PRN ×3 (10:54→22:10)
[2019-06-17] MEDS: BACITRACIN 0.9 GM PACKET TP SCH ×2 (10:56→22:09)
[2019-06-17] MEDS: METHOCARBAMOL 500 MG TABLET PO PRN (17:23)
[2019-06-17] MEDS: THIAMINE HCL 100 MG TABLET (FP) PO SCH (22:09)
[2019-06-17] MEDS: MELATONIN 5 MG TABLETS PO PRN (22:10)
[2019-06-18] MEDS: GABAPENTIN 300 MG CAPSULE (FP) PO SCH ×3 (05:59→22:31)
[2019-06-18] MEDS ORDERED: diazePAM 5 MG TABLET PO ONE (06:00)
[2019-06-18] MEDS ORDERED: METHADONE HCL 5 MG TABLET (FOR DETOX USE ONLY) ONE (09:48)
[2019-06-18] MEDS ORDERED: METHADONE HCL 10 MG TABLET (FOR DETOX USE ONLY) ONE (09:48)
[2019-06-18] MEDS ORDERED: METHADONE (DETOX) 10 MG, METHADONE (DETOX) 5 MG PO ONE (10:00)
[2019-06-18] MEDS: PRENATAL VITAMINS W/ FOLIC ACID TABLET (FP) PO SCH (10:19)
[2019-06-18] MEDS: SULFAMETHOXAZOLE/TRIMETHOPRIM 800MG/160MG D.S. TABLET PO SCH ×2 (10:19→22:31)
[2019-06-18] MEDS: diazePAM 5 MG TABLET PO PRN ×3 (10:19→22:33)
[2019-06-18] MEDS: BACITRACIN 0.9 GM PACKET TP SCH ×2 (10:20→22:30)
--- NOTE | 2019-06-18 11:28 | PN ---
[facility] CIWA - CIWA Score Nausea/Vomitin-Mild Nausea/No Vomiting Muscle Tremors: 3 Anxiety: 4-Mod. Anxious/Guarded Agitation: 2 Paroxysmal Sweats: 1-Minimal Palms Moist Orientation: 0-Oriented Tacttile Disturbances: 0-None Auditory Disturbances: 0-None Visual Disturbances: 0-None Headache: 1-Very Mild CIWA-Ar Total Score: 12 BHS COWS - Scale Resting Pulse: 0= [place] 80 or Below Sweatin= Chills/Flushing Restless Observation: 3= Extraneous Movement Pupil Size: 0= Normal to Room Light Bone or Joint Aches: 1= Mild Discomfort Runny Nose/ Eye Tearin= Constantly Teary/Runny GI Upset > 30mins: 1= Stomach Cramp Tremor Observation of Outstretched Hands: 2= Slight Tremor Visible Yawning Observation: 1= 1-2x During Session Anxiety or Irritability: 2=Irritable/Anxious Goose Flesh Skin: 0=Smooth Skin COWS Score: 15 [facility] Progress Note (SOAP) Subjective: Pt states she feels very anxious, and feels like she is in withdrawal, last dose of valium this morning for benzo detox, also on heroin detox. O: Vital Signs - 24 hr 06/17/19 06/17/19 06/17/19 14:01 18:01 21:40 Temperature 96.7 F L 100.1 F H 97.1 F L Pulse Rate 94 H 97 H 86 Respiratory 18 20 16 Rate Blood Pressure 102/61 107/66 108/68 06/18/19 06/18/19 06/18/19 00:30 03:30 06:33 Temperature 97.5 F L Pulse Rate 82 Respiratory 18 18 16 Rate Blood Pressure 102/63 06/18/19 09:22 Temperature 97.3 F L Pulse Rate 77 Respiratory 18 Rate Blood Pressure 108/72 tremulous anxious Laboratory Tests 06/15/19 06/16/19 14:43 15:50 Urine Color Yellow Urine Appearance Turbid Urine pH 8.0 Ur Specific [place] 1.020 Urine Protein Negative Urine Glucose (UA) Negative Urine Ketones Negative Urine Blood Negative Urine Nitrite Negative Urine Bilirubin Negative Urine Urobilinogen 1.0 Ur Leukocyte Esterase Negative POC Urine HCG, Qual Negative a/p: continue benzo and heroin detox protocols. Will continue lower dose valium prn for continued anxiety from benzo withdrawals CBC and CMP not done this admission- ordered for today
--- NOTE | 2019-06-18 13:09 | CONSULT ---
[facility] Psychiatric Consult - Data Date of interview: 06/18/19 Admission source: [facility] Identifying data: Second admission to [facility] for this 29 y/o female self-referred for detoxification treatment (heroin, cocaine, xanax). Interviewed at [address] [place] [address]. Patient is single, no children, domiciled (detention), unemployed and supported on food stamps. Substance Abuse History: Discussed in this session. Patient confirms current [facility] report on her addictions. Details as follows : Smoking history: Never smoked. Have you smoked in the past 12 months: No. Hx Chewing Tobacco Use: No. Substances abused. Heroin. Substance route: Injection. Frequency: Daily. Amount used: 10-15 BAGS. Age of first use: 13. Date of last use: 06/15. Cocaine. Substance route: Injection. Frequency: Daily. Amount used: 2 GRAMS. Age of first use: 14. Date of last use: 06/15/19. Alprazolam ( Xanax). Substance route: Oral. Frequency: Daily. Amount used: 6-10 bars of 2mg. Age of first use: 14. Date of last use: 06/14/19 Medical History: Remarkable for obesity, anemia and bronchial asthma. Psychiatric History: Patient denies history of psychiatric hospitalizations. Initial contact with a psychiatrist occurred at age 14 (to address mood dysregulation following biological mother's ). Patient reportedly dropped out of OPD care after 2-3 months. Over the years, Ms Rodrigues was treated with alprazolam, quetiapine and trazodone. She indicates that she gets her medications from frequent admissions to substance abuse treatment centers (detox /rehabs). Diagnosed with Bipolar Disorder and PTSD. Has recently been seeing a psychiatrist at [facility] for medication management (seroquel 50 mg/hs + remeron 15 mg/hs + buspar 7.5 mg/bid). Patient denies history of suicide attempts. Physical/Sexual Abuse/Trauma History: History of multiple deaths in the family ( sister of grug overdose; father of leukemia). Patient declines to discuss issues of abuse. Additional Comment: Urine drug screen results: RADHA-Cocaine, FEN-Fentanyl, BZO- Benzodiazepines, BUP-Suboxone. Noted. Mental Status Exam - Mental Status Exam Alert and Oriented to: Time, Place, Person Cognitive Function: Good Patient Appearance: Well Groomed (obese) Mood: Anxious, Apprehensive Affect: Mood Congruent, Normal Range Patient Behavior: Fatigued, Appropriate (friendly), Cooperative Speech Pattern: Clear, Appropriate Voice Loudness: Normal Thought Process: Intact, Goal Oriented Thought Disorder: Not Present Hallucinations: Denies Suicidal Ideation: Denies Homicidal Ideation: Denies Insight/Judgement: Poor Sleep: Poorly, Difficulty falling asleep Appetite: Good Gait/Station: Normal Psychiatric Findings - Problem List ([place] 1, 2,3) (1) Opioid dependence with withdrawal Current Visit: Yes Status: Acute (2) Cocaine dependence Current Visit: Yes Status: Chronic Qualifiers: Substance use status: uncomplicated Qualified Code(s): F14.20 - Cocaine dependence, uncomplicated (3) Benzodiazepine dependence Current Visit: Yes Status: Chronic (4) Substance induced mood disorder Current Visit: Yes Status: Chronic (5) History of posttraumatic stress disorder (PTSD) Current Visit: Yes Status: Chronic (6) History of bipolar disorder Current Visit: Yes Status: Chronic (7) Insomnia Current Visit: Yes Status: Chronic - Initial Treatment Plan Initial Treatment Plan: Psychoeducation. Sleep hygiene. Detoxification. Support. NA meetings. Relapse prevention (MAT) measures : discussed with the patient. Ms Rodrigues will be going to [facility] program upon completion of detoxification protocol. Medications : buspar 7.5 mg po bid + seroquel 50 mg po hs + remeron 15 mg po hs. Side effects/benefits of each drug are discussed with patient. Verbal consent given to MD. Jc.
[2019-06-18] MEDS: MIRTAZAPINE 15 MG TABLET (FP) PO SCH (22:31)
[2019-06-18] MEDS: THIAMINE HCL 100 MG TABLET (FP) PO SCH (22:31)
[2019-06-18] MEDS: QUEtiapine FUMARATE 50 MG TABLET PO SCH (22:31)
[2019-06-18] MEDS: busPIRone HCL 5 MG TABLET PO SCH (22:33)
[2019-06-19] MEDS: diazePAM 5 MG TABLET PO PRN ×3 (05:17→17:04)
[2019-06-19] MEDS: GABAPENTIN 300 MG CAPSULE (FP) PO SCH ×3 (05:17→22:07)
[2019-06-19] MEDS: BACITRACIN 0.9 GM PACKET TP SCH ×2 (09:48→22:09)
[2019-06-19] MEDS: SULFAMETHOXAZOLE/TRIMETHOPRIM 800MG/160MG D.S. TABLET PO SCH ×2 (09:50→22:07)
[2019-06-19] MEDS ORDERED: METHADONE HCL 10 MG TABLET (FOR DETOX USE ONLY) PO ONE (10:00)
[2019-06-19 10:45] LABS: EOS % 7.5 % (0-4.5); HEMATOCRIT 33.7 % (32.4-45.2); HEMOGLOBIN 10.7 GM/dL (10.7-15.3); LYMPH % 33.3 % (8-40); MCHC 31.7 g/dl (32.0-36.0); MEAN CELL VOLUME 59.6 fl (80-96); MEAN PLT VOLUME 9.3 fl (7.5-11.1); MONO % 8.8 % (3.8-10.2); NEUT % 49.4 % (42.8-82.8); PLATELET COUNT 451 K/MM3 (134-434); RBC 5.65 M/mm3 (3.60-5.2); RDW 17.3 % (11.6-15.6); WHITE BLOOD COUNT 7.9 K/mm3 (4.0-10.0)
[2019-06-19 10:52] LABS: ALBUMIN 3.2 g/dl (3.4-5.0); BILIRUBIN,TOTAL 0.6 mg/dL (0.2-1); BLOOD UREA NITROGEN 16.9 mg/dL (7-18); CALCIUM 9.1 mg/dL (8.5-10.1); CREATININE 0.6 mg/dL (0.55-1.3); POTASSIUM 4.1 mmol/L (3.5-5.1); TOT PROT 7.4 g/dl (6.4-8.2)
[2019-06-19 10:56] LABS: MCH 18.9 pg (25.7-33.7)
[2019-06-19] MEDS: PRENATAL VITAMINS W/ FOLIC ACID TABLET (FP) PO SCH (12:00)
[2019-06-19] MEDS: busPIRone HCL 5 MG TABLET PO SCH ×2 (12:00→22:06)
[2019-06-19 13:13] LABS: ANISOCYTOSIS 2+; MACROCYTOSIS 0; OVALOCYTE 1+; PLATELET ESTIMATE NORMAL
--- NOTE | 2019-06-19 15:36 | PN ---
S CIWA - CIWA Score Nausea/Vomitin-No Nausea/No Vomiting Muscle Tremors: 2 Anxiety: 2 Agitation: 2 Paroxysmal Sweats: No Perspiration Orientation: 0-Oriented Tacttile Disturbances: 0-None Auditory Disturbances: 0-None Visual Disturbances: 0-None Headache: 0-None Present CIWA-Ar Total Score: 6 BHS COWS - Scale Resting Pulse: 1= [place] 81-100 Sweatin= Chills/Flushing Restless Observation: 0= Sits Still Pupil Size: 0= Normal to Room Light Bone or Joint Aches: 1= Mild Discomfort Runny Nose/ Eye Tearin= Nasal Congestion GI Upset > 30mins: 0= None Tremor Observation of Outstretched Hands: 1= Tremor [place], Not Seen Yawning Observation: 0= None Anxiety or Irritability: 1=Feels Anxious/Irritable Goose Flesh Skin: 0=Smooth Skin COWS Score: 6 S Progress Note (SOAP) Subjective: feeling better today less anxiousness sleep better today mild tremor Objective: 06/19/19 15:35 Vital Signs Temperature 97.3 F L 06/19/19 13:57 Pulse Rate 88 06/19/19 13:57 Respiratory Rate 18 06/19/19 13:57 Blood Pressure 126/79 06/19/19 13:57 O2 Sat by Pulse Oximetry (%) Laboratory Last Values WBC 7.9 K/mm3 (4.0-10.0) 06/19/19 07:30 RBC 5.65 M/mm3 (3.60-5.2) H 06/19/19 07:30 Hgb 10.7 GM/dL (10.7-15.3) 06/19/19 07:30 Hct 33.7 % (32.4-45.2) 06/19/19 07:30 MCV 59.6 fl (80-96) L 06/19/19 07:30 MCH 18.9 pg (25.7-33.7) L 06/19/19 07:30 MCHC 31.7 g/dl (32.0-36.0) L 06/19/19 07:30 RDW 17.3 % (11.6-15.6) H 06/19/19 07:30 Plt Count 451 K/MM3 (134-434) H 06/19/19 07:30 MPV 9.3 fl (7.5-11.1) 06/19/19 07:30 Absolute Neuts (auto) 3.9 K/mm3 (1.5-8.0) 06/19/19 07:30 Neutrophils % 49.4 % (42.8-82.8) 06/19/19 07:30 Lymphocytes % 33.3 % (8-40) 06/19/19 07:30 Monocytes % 8.8 % (3.8-10.2) 06/19/19 07:30 Eosinophils % 7.5 % (0-4.5) H 06/19/19 07:30 Basophils % 1.0 % (0-2.0) 06/19/19 07:30 Nucleated RBC % 0 % (0-0) 06/19/19 07:30 Hypochromia 1+ 06/19/19 07:30 Platelet Estimate Normal 06/19/19 07:30 Polychromasia 0 06/19/19 07:30 Poikilocytosis 1+ 06/19/19 07:30 Anisocytosis 2+ 06/19/19 07:30 Microcytosis 2+ 06/19/19 07:30 Macrocytosis 0 06/19/19 07:30 Ovalocytes 1+ 06/19/19 07:30 Sodium 137 mmol/L (136-145) 06/19/19 07:30 Potassium 4.1 mmol/L (3.5-5.1) 06/19/19 07:30 Chloride 103 mmol/L (98-107) 06/19/19 07:30 Carbon Dioxide 29 mmol/L (21-32) 06/19/19 07:30 Anion Gap 6 MMOL/L (8-16) L 06/19/19 07:30 BUN 16.9 mg/dL (7-18) 06/19/19 07:30 Creatinine 0.6 mg/dL (0.55-1.3) 06/19/19 07:30 Est GFR (CKD-EPI)AfAm 141.76 06/19/19 07:30 Est GFR (CKD-EPI)NonAf 122.31 06/19/19 07:30 Random Glucose 107 mg/dL (74-106) H 06/19/19 07:30 Calcium 9.1 mg/dL (8.5-10.1) 06/19/19 07:30 Total Bilirubin 0.6 mg/dL (0.2-1) 06/19/19 07:30 AST 102 U/L (15-37) H 06/19/19 07:30 ALT 141 U/L (13-61) H 06/19/19 07:30 Alkaline Phosphatase 90 U/L (45-117) 06/19/19 07:30 Total Protein 7.4 g/dl (6.4-8.2) 06/19/19 07:30 Albumin 3.2 g/dl (3.4-5.0) L 06/19/19 07:30 Urine Color Yellow 06/16/19 15:50 Urine Appearance Turbid 06/16/19 15:50 Urine pH 8.0 (5.0-8.0) 06/16/19 15:50 Ur Specific [place] 1.020 (1.010-1.035) 06/16/19 15:50 Urine Protein Negative (NEGATIVE) 06/16/19 15:50 Urine Glucose (UA) Negative (NEGATIVE) 06/16/19 15:50 Urine Ketones Negative (NEGATIVE) 06/16/19 15:50 Urine Blood Negative (NEGATIVE) 06/16/19 15:50 Urine Nitrite Negative (NEGATIVE) 06/16/19 15:50 Urine Bilirubin Negative (NEGATIVE) 06/16/19 15:50 Urine Urobilinogen 1.0 mg/dL (0.2-1.0) 06/16/19 15:50 Ur Leukocyte Esterase Negative (NEGATIVE) 06/16/19 15:50 POC Urine HCG, Qual Negative 06/15/19 14:43 RPR Titer Nonreactive (NONREACTIVE) 06/19/19 07:30 lab noted discuss alcohol related ast elevation Assessment: 06/19/19 15:36 benzo and opiate withdrawal sx Plan: continue benzo and opiate detox
[2019-06-19] MEDS: METHOCARBAMOL 500 MG TABLET PO PRN (17:05)
[2019-06-19] MEDS: QUEtiapine FUMARATE 50 MG TABLET PO SCH (22:06)
[2019-06-19] MEDS: THIAMINE HCL 100 MG TABLET (FP) PO SCH (22:07)
[2019-06-19] MEDS: MELATONIN 5 MG TABLETS PO PRN (22:07)
[2019-06-19] MEDS: MIRTAZAPINE 15 MG TABLET (FP) PO SCH (22:07)
[2019-06-20] MEDS ORDERED: METHADONE HCL 5 MG TABLET (FOR DETOX USE ONLY) PO ONE (06:00)
[2019-06-20] MEDS: GABAPENTIN 300 MG CAPSULE (FP) PO SCH (06:06)
[2019-06-20] MEDS: diazePAM 5 MG TABLET PO PRN (06:06)
[2019-06-20] MEDS: PRENATAL VITAMINS W/ FOLIC ACID TABLET (FP) PO SCH (09:03)
[2019-06-20] MEDS: busPIRone HCL 5 MG TABLET PO SCH (09:03)
[2019-06-20] MEDS: BACITRACIN 0.9 GM PACKET TP SCH (09:03)
[2019-06-20] MEDS: SULFAMETHOXAZOLE/TRIMETHOPRIM 800MG/160MG D.S. TABLET PO SCH (09:03)
[2019-06-20 09:13] VITALS: BP 126/90; PULSE 87; TEMP 97
--- NOTE | 2019-06-20 18:28 | DS ---
[facility] Detox Discharge Summary Admission Date: 06/15/19 Discharge Date: 06/20/19 - History Present History: Cocaine Dependence, Opioid Dependence, Sedative Dependence Additional Comments: PATIENT GOING TO [facility] ([place], [place]) FOR AFTERCARE. PRESCRIPTION FOR REMAINDER OF ANTIBIOTIC ([place]CTRIM) STARTED WHILE PATIENT WAS ADMITTED FOR DETOX FOR TREATMENT OF MULTIPLE ABSCESSES ON BODY SENT TO [facility] ([place], [place]) FOR PATIENT TO DETECTIVE HOMICIDE SQUAD ON HER WAY TO [facility]. PATIENT ADVISED TO COMPLETE FULL AMOUNT OF REMAINDER OF PRESCRIPTION. PATIENT VERBALIZED UNDERSTANDING OF RECOMMENDATION. PATIENT WAS DISCHARGED FROM DETOX UNIT IN STABLE MEDICAL CONDITION. Pertinent Past History: History Of Anemia, Asthma, Depression, Bipolar Disorder, Abscess, Elevated Liver Enzymes, Intravenous Drug User, History Of Post-Traumatic Stress Disorder , Insomnia. - Physical Exam Results Vital Signs: Vital Signs Temperature 97 F L 06/20/19 09:12 Pulse Rate 87 06/20/19 09:12 Respiratory Rate 18 06/20/19 09:12 Blood Pressure 126/90 06/20/19 09:12 O2 Sat by Pulse Oximetry (%) Pertinent Admission Physical Exam Findings: WITHDRAWAL SYMPTOMS. Laboratory Tests 06/15/19 06/16/19 06/19/19 14:43 15:50 07:30 WBC RBC Hgb Hct MCV MCH MCHC RDW Plt Count MPV Absolute Neuts (auto) Neutrophils % Lymphocytes % Monocytes % Eosinophils % Basophils % Nucleated RBC % Hypochromia Platelet Estimate Polychromasia Poikilocytosis Anisocytosis Microcytosis Macrocytosis Ovalocytes Sodium Potassium Chloride Carbon Dioxide Anion Gap BUN Creatinine Est GFR (CKD-EPI)AfAm Est GFR (CKD-EPI)NonAf Random Glucose Calcium Total Bilirubin AST ALT Alkaline Phosphatase Total Protein Albumin Urine Color Yellow Urine Appearance Turbid Urine pH 8.0 Ur Specific [place] 1.020 Urine Protein Negative Urine Glucose (UA) Negative Urine Ketones Negative Urine Blood Negative Urine Nitrite Negative Urine Bilirubin Negative Urine Urobilinogen 1.0 Ur Leukocyte Esterase Negative POC Urine HCG, Qual Negative RPR Titer Nonreactive 06/19/19 06/19/19 07:30 07:30 WBC 7.9 RBC 5.65 H Hgb 10.7 Hct 33.7 MCV 59.6 L MCH 18.9 L MCHC 31.7 L RDW 17.3 H Plt Count 451 H MPV 9.3 Absolute Neuts (auto) 3.9 Neutrophils % 49.4 Lymphocytes % 33.3 Monocytes % 8.8 Eosinophils % 7.5 H Basophils % 1.0 Nucleated RBC % 0 Hypochromia 1+ Platelet Estimate Normal Polychromasia 0 Poikilocytosis 1+ Anisocytosis 2+ Microcytosis 2+ Macrocytosis 0 Ovalocytes 1+ Sodium 137 Potassium 4.1 Chloride 103 Carbon Dioxide 29 Anion Gap 6 L BUN 16.9 Creatinine 0.6 Est GFR (CKD-EPI)AfAm 141.76 Est GFR (CKD-EPI)NonAf 122.31 Random Glucose 107 H Calcium 9.1 Total Bilirubin 0.6 AST 102 H ALT 141 H Alkaline Phosphatase 90 Total Protein 7.4 Albumin 3.2 L Urine Color Urine Appearance Urine pH Ur Specific [place] Urine Protein Urine Glucose (UA) Urine Ketones Urine Blood Urine Nitrite Urine Bilirubin Urine Urobilinogen Ur Leukocyte Esterase POC Urine HCG, Qual RPR Titer LABS NOTED. - Treatment Hospital Course: Detox Protocol Followed, Detoxed Safely, Responded well, Discharged Condition Good Patient has Accepted a Rehab Referral to: PT. GOING TO [facility] ([place], [place]). - Medication Discharge Medications: Ambulatory Orders Buspirone HCl [Buspar -] 7.5 mg PO BID 06/15/19 Folic Acid 1 mg PO DAILY 06/15/19 Gabapentin 300 mg PO TID 06/15/19 Mirtazapine 15 mg PO HS 06/15/19 Quetiapine Fumarate [Seroquel -] 50 mg PO HS 06/15/19 Buspirone HCl [Buspar -] 5 mg PO BID #60 tablet 06/19/19 Mirtazapine [Remeron -] 15 mg PO HS #30 tablet 06/19/19 Quetiapine Fumarate [Seroquel -] 50 mg PO HS #30 tablet 06/19/19 Gabapentin 300 mg PO TID #60 capsule 06/20/19 Sulfamethoxazole/Trimethoprim [Bactrim Ds -] 1 tab PO BID 7 Days #14 tablet - Diagnosis (1) Abscess Status: Acute (2) IVDU (intravenous drug user) Status: Acute (3) Opioid dependence with withdrawal Status: Acute (4) Cocaine dependence Status: Chronic Qualifiers: Substance use status: uncomplicated Qualified Code(s): F14.20 - Cocaine dependence, uncomplicated (5) Elevated liver enzymes Status: Chronic (6) Benzodiazepine dependence Status: Chronic (7) History of bipolar disorder Status: Chronic (8) History of posttraumatic stress disorder (PTSD) Status: Chronic (9) Insomnia Status: Chronic Qualifiers: Insomnia type: unspecified Qualified Code(s): G47.00 - Insomnia, unspecified (10) Substance induced mood disorder Status: Chronic - AMA Did Patient Leave Against Medical Advice: No
== END 2019-06-20 10:30 | disposition home or self-care (01) | DRG 773 ==
LOC: YASAS 12:50 → Y3N 15:46
PROVIDERS: ADMIT Surgery; ATTEND Surgery
PROC: HZ2ZZZZ Detoxification Services for Substance Abuse Treatment (ICD-10-PCS; principal; 2019-06-15)
DX: F11.23 Opioid dependence with withdrawal (principal); F13.230 Sedative, hypnotic or anxiolytic dependence with withdrawal, uncomplicated; F14.20 Cocaine dependence, uncomplicated; F19.24 Other psychoactive substance dependence with psychoactive substance-induced mood disorder; G47.00 Insomnia, unspecified; R94.5 Abnormal results of liver function studies; R74.8 Abnormal levels of other serum enzymes; L02.414 Cutaneous abscess of left upper limb; L02.413 Cutaneous abscess of right upper limb; Z86.59 Personal history of other mental and behavioral disorders; M62.830 Muscle spasm of back; N63.10 Unspecified lump in the right breast, unspecified quadrant; Z59.0 Homelessness
CPT/HCPCS: 36415; 80053; 81003; 81025; 85025; 86593

== ENCOUNTER 2019-08-24 13:01 | Inpatient (IN) | payer BC ==
[2019-08-24 15:31] VITALS: BMI 40.7
--- NOTE | 2019-08-24 17:04 | HP ---
COWS - Scale Resting Pulse: 1= [place] 81-100 Sweatin= Chills/Flushing Restless Observation: 1= Difficult to Sit Still Pupil Size: 1= Pupils >than Normal Bone or Joint Aches: 2= Severe Diffuse Aches Runny Nose/ Eye Tearin= Runny Nose/Eyes GI Upset > 30mins: 2= Nausea/Diarrhea Tremor Observation: 2= Slight Tremor Visible Yawning Observation: 2= >3x During Session Anxiety or Irritability: 2=Irritable/Anxious Goose Flesh Skin: 0=Smooth Skin COWS Score: 16 CIWA Score Nausea/Vomitin Muscle Tremors: 2 Anxiety: 3 Agitation: 2 Paroxysmal Sweats: 1-Minimal Palms Moist Orientation: 0-Oriented Tacttile Disturbances: 1-Very Mild Itch/Numbness Auditory Disturbances: 0-None Visual Disturbances: 0-None Headache: 2-Mild CIWA-Ar Total Score: 13 - Admission Criteria [facility]ASAS Guidelines: Admission for Medically Managed Detox: Requires at least one of the followin. CIWA greater than 12 2. Seizures within the past 24 hours 3. Delirium tremens within the past 24 hours 4. Hallucinations within the past 24 hours 5. Acute intervention needed for co occurring medical disorder 6. Acute intervention needed for co occurring psychiatric disorder 7. Severe withdrawal that cannot be handled at a lower level of care (continued vomiting, continued diarrhea, abnormal vital signs) requiring intravenous medication and/or fluids 8. Admission ROS S - [facility] Chief Complaint: i nee help to stop using heroin,cocaine,xanax Allergies/Adverse Reactions: Allergies Allergy/AdvReac Type Severity Reaction Status Date / Time No Known Drug Allergies Allergy Verified 08/24/19 15:20 raspberries Allergy Mild Swelling Uncoded 08/24/19 15:20 History of Present Illness: this 29 years old female with heroin ,cocaine and xanax dependence,seeking detox ,withdrawal symptom, multiple admissions in detox and rehab last detox [facility] 06/15/19 to 05/27/19 keep relapsing seizure xanax withdrawal 2 years ago syncope swelling with erythema both elbows for 1 week longest sobriety 8 months anxiety,depression,ptsd,insomnia asthma plan for rehab after detox - Ebola screening Have you traveled outside of the country in the last 21 days: No (N) Have you had contact with anyone from an Ebola affected area: No Do you have a fever: No - Review of Systems Constitutional: Chills, Loss of Appetite, Malaise, Night Sweats, Changes in sleep EENT: reports: Tearing, Nose Congestion Respiratory: reports: No Symptoms reported Cardiac: reports: No Symptoms Reported GI: reports: Diarrhea, Nausea, Vomiting, Abdominal cramping : reports: No Symptoms Reported Musculoskeletal: reports: Back Pain, Joint Pain, Muscle Pain Integumentary: reports: Dryness Neuro: reports: Tremors Endocrine: reports: No Symptoms Reported Hematology: reports: No Symptoms Reported Psychiatric: reports: No Sypmtoms Reported, Mood/Affect Appropiate, Orientated x3, Anxious, Depressed, other (ptsd,insomnia) Patient History - Patient Medical History Hx Anemia: Yes (no blood transfusion ,non compliance) Hx Asthma: Yes (on albuterol inhaler) Hx Chronic Obstructive Pulmonary Disease (COPD): No Hx Cancer: No Hx Cardiac Disorders: No Hx Congestive Heart Failure: No Hx Hypertension: No Hx Hypercholesterolemia: No Hx Pacemaker: No HX Cerebrovascular Accident: No Hx Seizures: Yes (last 2016 withdrawal) Hx Dementia: No Hx Diabetes: No Hx Gastrointestinal Disorders: No Hx Liver Disease: No Hx Genitourinary Disorders: No Hx Sexually Transmitted Disorders: No Hx Renal Disease (ESRD): No Hx Thyroid Disease: No Hx Human Immunodeficiency Virus (HIV): No (last 08/14 negative) Hx Hepatitis C: No Hx Depression: Yes (anxiety,insonia,) Hx Suicide Attempt: No Hx Bipolar Disorder: No Hx Schizophrenia: No Other Medical History: ptsd,no suicidal,no homicidal - Patient Surgical History Past Surgical History: No Hx Neurologic Surgery: No Hx Cataract Extraction: No Hx Cardiac Surgery: No Hx Lung Surgery: No Hx Breast Surgery: No Hx Breast Biopsy: No Hx Abdominal Surgery: No Hx Appendectomy: No Hx Cholecystectomy: No Hx Genitourinary Surgery: No Hx Section: No Hx Orthopedic Surgery: No Anesthesia Reaction: No - PPD History Previous Implant?: Yes Date: 03/07/19 Results: 0 mm PPD to be Administered?: No - Reproductive History Patient is a Female of Child Bearing Age (11 -55 yrs old): Yes Last Menstrual Period: 06/09/19 Patient : No - Smoking Cessation Smoking history: Never smoked Have you smoked in the past 12 months: No Hx Chewing Tobacco Use: No - Substance & Tx. History Hx Alcohol Use: No Hx Substance Use: Yes Substance Use Type: Cocaine, Heroin, Tranquilizers Hx Substance Use Treatment: Yes ([facility] 06/15/19 to 06/20/19) - Substances abused Heroin Substance route: Injection Frequency: Daily Amount used: 10-15 BAGS Age of first use: 13 Date of last use: 08/24/19 Cocaine Substance route: Injection Frequency: Daily Amount used: 2 GRAMS Age of first use: 14 Date of last use: 08/24/19 Alprazolam (Xanax) Substance route: Oral Frequency: 3-6 times per week Amount used: 6-10 bars of 2mg Age of first use: 14 Date of last use: 08/23/19 Admission Physical Exam S - Vital Signs Vital Signs: Vital Signs - 24 hr 08/24/19 15:27 Temperature 97.1 F L Pulse Rate 91 H Respiratory 20 Rate Blood Pressure 134/75 - Physical General Appearance: Yes: Moderate Distress, Tremorous, Irritable, Sweating, Anxious HEENTM: Yes: Normal ENT Inspection, NIC, Pharynx Normal Respiratory: Yes: Lungs Clear, Normal Breath Sounds, No Respiratory Distress Neck: Yes: Within Normal Limits, Supple, Trachea in good position Breast: Yes: Breast Exam Deferred Cardiology: Yes: Within Normal Limits, Regular Rhythm, Regular Rate, S1, S2 Abdominal: Yes: Within Normal Limits, Normal Bowel Sounds, Non Tender, Flat, Soft Genitourinary: Yes: Within Normal Limits Back: Yes: Muscle Spasm Musculoskeletal: Yes: Back pain, Muscle Pain Extremities: Yes: Tremors Neurological: Yes: crosscutter II-XII NML intact, Fully Oriented, Alert, Motor Strength 5/5 Integumentary: Yes: Dry, Track [place] (cellulitis with abscess of both elbow, both ankles,breasts) Lymphatic: Yes: Within Normal Limits - Diagnostic (1) Opioid dependence with withdrawal Current Visit: No Status: Acute (2) Anxiety and depression Current Visit: Yes Status: Acute (3) Abscess Current Visit: No Status: Acute (4) IVDU (intravenous drug user) Current Visit: No Status: Acute (5) Anemia Current Visit: No Status: Chronic Qualifiers: Anemia type: unspecified type Qualified Code(s): D64.9 - Anemia, unspecified (6) Asthma Current Visit: No Status: Chronic Qualifiers: Asthma severity: mild Asthma persistence: intermittent Asthma complication type: with acute exacerbation Qualified Code(s): J45.21 - Mild intermittent asthma with (acute) exacerbation (7) Benzodiazepine dependence Current Visit: No Status: Chronic (8) Cocaine dependence Current Visit: No Status: Chronic Qualifiers: Substance use status: uncomplicated Qualified Code(s): F14.20 - Cocaine dependence, uncomplicated (9) History of posttraumatic stress disorder (PTSD) Current Visit: No Status: Chronic (10) Insomnia Current Visit: No Status: Chronic Qualifiers: Insomnia type: unspecified Qualified Code(s): G47.00 - Insomnia, unspecified (11) Cellulitis Current Visit: Yes Status: Acute (12) Alcohol dependence with uncomplicated withdrawal Current Visit: Yes Status: Acute Cleared for Admission S - Detox or Rehab [facility] Level of Care: Medically Managed Detox Regimen/Protocol: Methadone/Valium Breathalyzer - Breathalyzer Breathalyzer: 0 POC Urine test - Test device test lot number: [id number] Expiration date: 07/26/20 - Control test control: Yes Urine Drug Screen - Test Device Lot number: [id number] Expiration date: 04/25/21 - Control Is test valid?: Yes - Results Drug screen NEGATIVE: Yes Urine drug screen results: RADHA-Cocaine, FEN-Fentanyl Inpatient Rehab Admission - Rehab Decision to Admit Inpatient rehab admission?: No
[2019-08-24] MEDS ORDERED: MAGNESIUM CITRATE 300 ML BOTTLE PO PRN (17:20)
[2019-08-24] MEDS ORDERED: MENTHOL/PHENOL 1 EACH UD MM PRN (17:20)
[2019-08-24] MEDS ORDERED: MAG HYDROX/AL HYDROX/SIMETH 30 ML UNIT-DOSE CUP PO PRN (17:20)
[2019-08-24] MEDS ORDERED: MAGNESIUM HYDROX 2400MG/30ML ORAL SUSPENSION 30 ML CUP PO PRN (17:20)
[2019-08-24] MEDS ORDERED: ACETAMINOPHEN 325 MG TABLET (FP) PO PRN ×2 (17:20)
[2019-08-24] MEDS ORDERED: IBUPROFEN 400 MG TABLET (FP) PO PRN (17:20)
[2019-08-24] MEDS ORDERED: MELATONIN 5 MG TABLETS PO PRN (17:20)
[2019-08-24] MEDS ORDERED: cloNIDine HCL 0.1 MG TABLET PO PRN (17:20)
[2019-08-24] MEDS ORDERED: METHADONE HCL 10 MG TABLET (FOR DETOX USE ONLY) PO ONE (17:20)
[2019-08-24] MEDS ORDERED: BISMUTH SUBSALICYLATE 524 MG/30 ML UD PO PRN (17:20)
[2019-08-24] MEDS: diazePAM 5 MG TABLET PO PRN (18:14)
[2019-08-24] MEDS ORDERED: QUEtiapine FUMARATE 50 MG TABLET PO ONE (22:00)
[2019-08-24] MEDS: SULFAMETHOXAZOLE/TRIMETHOPRIM 800MG/160MG D.S. TABLET PO SCH (22:08)
[2019-08-24] MEDS: diazePAM 5 MG TABLET PO SCH (22:08)
[2019-08-24] MEDS: THIAMINE HCL 100 MG TABLET (FP) PO SCH (22:08)
[2019-08-24] MEDS: BACITRACIN 15 GM TUBE TOPICAL OINTMENT TP SCH (22:24)
[2019-08-25] MEDS: diazePAM 5 MG TABLET PO SCH ×3 (05:49→22:00)
[2019-08-25] MEDS ORDERED: METHADONE HCL 10 MG TABLET (FOR DETOX USE ONLY) ONE (08:47)
[2019-08-25] MEDS ORDERED: METHADONE HCL 5 MG TABLET (FOR DETOX USE ONLY) ONE (08:48)
[2019-08-25] MEDS ORDERED: METHADONE (DETOX) 20 MG, METHADONE (DETOX) 5 MG PO ONE (10:00)
--- NOTE | 2019-08-25 10:04 | PN ---
[facility] CIWA - CIWA Score Nausea/Vomitin-No Nausea/No Vomiting Muscle Tremors: 3 Anxiety: 3 Agitation: 3 Paroxysmal Sweats: 3 Orientation: 0-Oriented Tacttile Disturbances: 0-None Auditory Disturbances: 0-None Visual Disturbances: 0-None Headache: 0-None Present CIWA-Ar Total Score: 12 BHS COWS - Scale Resting Pulse: 1= [place] 81-100 Sweatin= Chills/Flushing Restless Observation: 0= Sits Still Pupil Size: 0= Normal to Room Light Bone or Joint Aches: 2= Severe Diffuse Aches Runny Nose/ Eye Tearin= Nasal Congestion GI Upset > 30mins: 0= None Tremor Observation of Outstretched Hands: 2= Slight Tremor Visible Yawning Observation: 2= >3x During Session Anxiety or Irritability: 2=Irritable/Anxious Goose Flesh Skin: 0=Smooth Skin COWS Score: 11 S Progress Note (SOAP) Subjective: body aches sweats shakes body aches interrupted sleep muscle cramps irritable chills Objective: 08/25/19 10:22 Vital Signs Temperature 97.9 F 08/25/19 09:20 Pulse Rate 92 H 08/25/19 09:20 Respiratory Rate 18 08/25/19 09:20 Blood Pressure 110/69 08/25/19 09:20 O2 Sat by Pulse Oximetry (%) Laboratory Tests 08/24/19 15:57 POC Urine HCG, Qual Negative rest of labs pending aaox3 ambulating no acute distress Assessment: 08/25/19 10:23 withdrawals Plan: continue detox increase fluids roboxin prn motrin prn
[2019-08-25] MEDS: SULFAMETHOXAZOLE/TRIMETHOPRIM 800MG/160MG D.S. TABLET PO SCH ×2 (10:17→22:00)
[2019-08-25] MEDS: PRENATAL VITAMINS W/ FOLIC ACID TABLET (FP) PO SCH (10:17)
[2019-08-25] MEDS: METHOCARBAMOL 500 MG TABLET PO PRN ×2 (10:17→16:28)
[2019-08-25] MEDS: diazePAM 5 MG TABLET PO PRN ×3 (10:19→20:47)
[2019-08-25] MEDS: BACITRACIN 15 GM TUBE TOPICAL OINTMENT TP SCH ×2 (10:20→22:00)
[2019-08-25 11:52] LABS: HEMOGLOBIN 8.3 GM/dL (10.7-15.3); MCHC 30.9 g/dl (32.0-36.0); MEAN CELL VOLUME 57.1 fl (80-96); MEAN PLT VOLUME 9.3 fl (7.5-11.1); PLATELET COUNT 474 K/MM3 (134-434); RBC 4.72 M/mm3 (3.60-5.2); RDW 17.9 % (11.6-15.6)
[2019-08-25 11:54] LABS: MCH 17.6 pg (25.7-33.7)
[2019-08-25 12:40] LABS: ALBUMIN 2.8 g/dl (3.4-5.0); BILIRUBIN,TOTAL 0.4 mg/dL (0.2-1); BLOOD UREA NITROGEN 6.9 mg/dL (7-18); CALCIUM 8.9 mg/dL (8.5-10.1); CREATININE 0.6 mg/dL (0.55-1.3); POTASSIUM 3.7 mmol/L (3.5-5.1); TOT PROT 7.1 g/dl (6.4-8.2)
[2019-08-25] MEDS ORDERED: GABAPENTIN 300 MG CAPSULE (FP) PO ONE (18:45)
[2019-08-25] MEDS: THIAMINE HCL 100 MG TABLET (FP) PO SCH (21:59)
[2019-08-25] MEDS: GABAPENTIN 300 MG CAPSULE (FP) PO SCH (22:00)
[2019-08-26] MEDS: diazePAM 5 MG TABLET PO SCH ×2 (05:45→16:59)
[2019-08-26] MEDS: GABAPENTIN 300 MG CAPSULE (FP) PO SCH ×3 (05:45→22:28)
[2019-08-26] MEDS ORDERED: METHADONE HCL 10 MG TABLET (FOR DETOX USE ONLY) PO ONE (10:00)
[2019-08-26] MEDS: PRENATAL VITAMINS W/ FOLIC ACID TABLET (FP) PO SCH (10:31)
[2019-08-26] MEDS: SULFAMETHOXAZOLE/TRIMETHOPRIM 800MG/160MG D.S. TABLET PO SCH ×2 (10:31→22:28)
[2019-08-26] MEDS: hydrOXYzine PAMOATE 25 MG CAPSULE (FP) PO PRN ×2 (10:32→16:59)
[2019-08-26] MEDS: BACITRACIN 15 GM TUBE TOPICAL OINTMENT TP SCH ×2 (10:32→23:50)
--- NOTE | 2019-08-26 10:33 | CONSULT ---
[facility] Psychiatric Consult - Data Date of interview: 08/26/19 Admission source: Self-referred Identifying data: Ms Rodrigues is a 29 years old single female, unemployed receiving food stamp, domiciled living with boyfriend seeking detox treatment for opioid, cocaine anf benzodiazepine Substance Abuse History: Reports history of heroin, cocaine and xanax use. Refer to addiction counselor's summary for further information Medical History: Significant for anemia, bronchial asthma, obesity and history of benzodiazepine withdrawal seizure Psychiatric History: Patient with history of two previous admissions to this facility in February 2019 and May 2019. She reports that her first psychiatric contact was at age 14 following the of her biological mother. She said that she was diagnosed with PTSD, MDD, Anxiety and started on psychotropic medications. Told film writer that over the years, she has seeing psychiatrist on & off as well as taking medications. Reports taking Seroquel , Xanax Trazadone, Remeron, Buspar. During her most recent admission to this facility, she saw Dr Griffith and she was prescribed Seroquel 50 mg/hs, Remeron 15 mg/hs and Buspar 7.5 mg/bid. Claims after her discharge from this facility. she was admitted to [facility] where she was also prescribed these medications. Told film writer that she ran out of Buspar which she does not want to take anymore. Requests to continue Seroquel and Remeron. Patient denies previous psychiatric hospitalization or suicide attempt. At present, reports feeling anxious and sleeping poorly. However, denies S/H ideations Physical/Sexual Abuse/Trauma History: Reportedly patient has history of multiple deaths in the family (sister of drug overdose; father of leukemia). These issues were discussed with patient as she has avoided to discussed them in the past Mental Status Exam - Mental Status Exam Alert and Oriented to: Time, Place, Person Cognitive Function: Fair Patient Appearance: Well Groomed Mood: Anxious Affect: Appropriate Patient Behavior: Cooperative Speech Pattern: Clear Voice Loudness: Normal Thought Process: Intact, Goal Oriented Hallucinations: Denies Suicidal Ideation: Denies Homicidal Ideation: Denies Insight/Judgement: Poor Sleep: Poorly Appetite: Good Muscle strength/Tone: Normal Psychiatric Findings - Problem List ([place] 1, 2,3) (1) PTSD (post-traumatic stress disorder) Current Visit: Yes Status: Chronic (2) MDD (major depressive disorder) Current Visit: Yes Status: Chronic (3) Substance-induced anxiety disorder Current Visit: Yes Status: Acute (4) Substance-induced sleep disorder Current Visit: Yes Status: Acute (5) Opioid dependence with withdrawal Current Visit: No Status: Acute (6) Cocaine dependence Current Visit: No Status: Acute Qualifiers: Substance use status: uncomplicated Qualified Code(s): F14.20 - Cocaine dependence, uncomplicated (7) Sedative, hypnotic or anxiolytic dependence, uncomplicated Current Visit: Yes Status: Acute (8) Anemia Current Visit: No Status: Chronic Qualifiers: Anemia type: unspecified type Qualified Code(s): D64.9 - Anemia, unspecified (9) Asthma Current Visit: No Status: Chronic Qualifiers: Asthma severity: mild Asthma persistence: intermittent Asthma complication type: with acute exacerbation Qualified Code(s): J45.21 - Mild intermittent asthma with (acute) exacerbation (10) Seizure concurrent with and due to anxiolytic withdrawal Current Visit: Yes Status: Resolved - Initial Treatment Plan Initial Treatment Plan: 1) Resume Seroquel 50 mg po HS and Remeron 15 mg po HS. 2) Continue inpatient detoxification
[2019-08-26] MEDS: diazePAM 5 MG TABLET PO PRN ×3 (10:34→22:31)
[2019-08-26 12:08] LABS: EPI CELLS 7.4 /HPF (0-5/HPF); HYALINE CASTS 76 /lpf (0-8); URINE APPEARANCE CLOUDY; URINE BACTERIA >9000 /hpf (NEGATIVE); URINE BILIRUBIN NEGATIVE (NEGATIVE); URINE COLOR YELLOW; URINE GLUCOSE (UA) NEGATIVE (NEGATIVE); URINE KETONE NEGATIVE (NEGATIVE); URINE LEUK ESTERASE 2+ (NEGATIVE); URINE NITRITE POSITIVE (NEGATIVE); URINE PROTEIN TRACE (NEGATIVE); URINE RBC 3 /hpf (0-4); URINE UROBILINOGEN 0.2 mg/dL (0.2-1.0); URINE WBC 99 /hpf (0-5)
--- NOTE | 2019-08-26 13:12 | PN ---
[facility] CIWA - CIWA Score Nausea/Vomitin-No Nausea/No Vomiting Muscle Tremors: 3 Anxiety: 2 Agitation: 2 Paroxysmal Sweats: 2 Orientation: 0-Oriented Tacttile Disturbances: 0-None Auditory Disturbances: 0-None Visual Disturbances: 0-None Headache: 0-None Present CIWA-Ar Total Score: 9 BHS COWS - Scale Resting Pulse: 1= [place] 81-100 Sweatin= Chills/Flushing Restless Observation: 0= Sits Still Pupil Size: 0= Normal to Room Light Bone or Joint Aches: 1= Mild Discomfort Runny Nose/ Eye Tearin= Nasal Congestion GI Upset > 30mins: 0= None Tremor Observation of Outstretched Hands: 1= Tremor [place], Not Seen Yawning Observation: 1= 1-2x During Session Anxiety or Irritability: 1=Feels Anxious/Irritable Goose Flesh Skin: 0=Smooth Skin COWS Score: 7 S Progress Note (SOAP) Subjective: sweats feeling better than yesterday interrupted sleep anxiety Objective: 08/26/19 13:11 Vital Signs Temperature 98.2 F 08/26/19 09:49 Pulse Rate 91 H 08/26/19 09:49 Respiratory Rate 18 08/26/19 09:49 Blood Pressure 105/70 08/26/19 09:49 O2 Sat by Pulse Oximetry (%) Laboratory Tests 08/24/19 08/25/19 08/25/19 15:57 08:50 08:50 WBC 11.0 H RBC 4.72 Hgb 8.3 L Hct 27.0 L D MCV 57.1 L MCH 17.6 L MCHC 30.9 L RDW 17.9 H Plt Count 474 H MPV 9.3 Sodium 141 Potassium 3.7 Chloride 107 Carbon Dioxide 26 Anion Gap 7 L BUN 6.9 L Creatinine 0.6 Est GFR (CKD-EPI)AfAm 141.76 Est GFR (CKD-EPI)NonAf 122.31 Random Glucose 96 Calcium 8.9 Total Bilirubin 0.4 AST 44 H ALT 52 Alkaline Phosphatase 76 Total Protein 7.1 Albumin 2.8 L Urine Color Urine Appearance Urine pH Ur Specific [place] Urine Protein Urine Glucose (UA) Urine Ketones Urine Blood Urine Nitrite Urine Bilirubin Urine Urobilinogen Ur Leukocyte Esterase Urine WBC (Auto) Urine RBC (Auto) Urine Casts (Auto) U Epithel Cells (Auto) Urine Bacteria (Auto) POC Urine HCG, Qual Negative RPR Titer 08/25/19 08/26/19 08:50 09:50 WBC RBC Hgb Hct MCV MCH MCHC RDW Plt Count MPV Sodium Potassium Chloride Carbon Dioxide Anion Gap BUN Creatinine Est GFR (CKD-EPI)AfAm Est GFR (CKD-EPI)NonAf Random Glucose Calcium Total Bilirubin AST ALT Alkaline Phosphatase Total Protein Albumin Urine Color Yellow Urine Appearance Cloudy Urine pH 7.0 Ur Specific [place] 1.021 Urine Protein Trace Urine Glucose (UA) Negative Urine Ketones Negative Urine Blood Negative Urine Nitrite Positive H Urine Bilirubin Negative Urine Urobilinogen 0.2 Ur Leukocyte Esterase 2+ H Urine WBC (Auto) 99 Urine RBC (Auto) 3 Urine Casts (Auto) 76 U Epithel Cells (Auto) 7.4 Urine Bacteria (Auto) >9000 POC Urine HCG, Qual RPR Titer Nonreactive labs noted pt is currently taking ABX for UTI aaox3 ambulating no acute distress Assessment: 08/26/19 13:12 withdrawals Plan: continue detox increase fluids
[2019-08-26] MEDS ORDERED: QUEtiapine FUMARATE 50 MG TABLET ONE (19:55)
[2019-08-26] MEDS ORDERED: MIRTAZAPINE 15 MG TABLET (FP) ONE (19:55)
[2019-08-26] MEDS: QUEtiapine FUMARATE 50 MG TABLET PO SCH (22:28)
[2019-08-26] MEDS: THIAMINE HCL 100 MG TABLET (FP) PO SCH (22:28)
[2019-08-26] MEDS: MIRTAZAPINE 15 MG TABLET (FP) PO SCH (22:28)
[2019-08-27] MEDS: GABAPENTIN 300 MG CAPSULE (FP) PO SCH ×3 (05:28→22:07)
[2019-08-27] MEDS: hydrOXYzine PAMOATE 25 MG CAPSULE (FP) PO PRN ×3 (05:28→19:20)
[2019-08-27] MEDS ORDERED: diazePAM 5 MG TABLET PO ONE (06:00)
[2019-08-27] MEDS: diazePAM 5 MG TABLET PO PRN ×2 (09:02→14:57)
[2019-08-27] MEDS ORDERED: METHADONE HCL 5 MG TABLET (FOR DETOX USE ONLY) ONE (09:04)
[2019-08-27] MEDS ORDERED: METHADONE HCL 10 MG TABLET (FOR DETOX USE ONLY) ONE (09:04)
[2019-08-27] MEDS ORDERED: METHADONE (DETOX) 10 MG, METHADONE (DETOX) 5 MG PO ONE (10:00)
[2019-08-27] MEDS: SULFAMETHOXAZOLE/TRIMETHOPRIM 800MG/160MG D.S. TABLET PO SCH ×2 (10:08→22:07)
[2019-08-27] MEDS: PRENATAL VITAMINS W/ FOLIC ACID TABLET (FP) PO SCH (10:08)
[2019-08-27] MEDS: BACITRACIN 15 GM TUBE TOPICAL OINTMENT TP SCH ×2 (10:09→22:09)
--- NOTE | 2019-08-27 10:59 | PN ---
[facility] CIWA - CIWA Score Nausea/Vomitin-No Nausea/No Vomiting Muscle Tremors: 2 Anxiety: 1-Mildly Anxious Agitation: 2 Paroxysmal Sweats: 1-Minimal Palms Moist Orientation: 0-Oriented Tacttile Disturbances: 0-None Auditory Disturbances: 0-None Visual Disturbances: 0-None Headache: 0-None Present CIWA-Ar Total Score: 6 BHS COWS - Scale Resting Pulse: 2= [place] 101-120 Sweatin=Flushed/Facial Moisture Restless Observation: 1= Difficult to Sit Still Pupil Size: 0= Normal to Room Light Bone or Joint Aches: 1= Mild Discomfort Runny Nose/ Eye Tearin= Nasal Congestion GI Upset > 30mins: 0= None Tremor Observation of Outstretched Hands: 1= Tremor [place], Not Seen Yawning Observation: 0= None Anxiety or Irritability: 1=Feels Anxious/Irritable Goose Flesh Skin: 0=Smooth Skin COWS Score: 9 BHS Progress Note (SOAP) Subjective: agitation sweats anxiety irritable Objective: 08/27/19 10:58 Vital Signs Temperature 97.9 F 08/27/19 09:27 Pulse Rate 107 H 08/27/19 09:27 Respiratory Rate 16 08/27/19 09:27 Blood Pressure 126/71 08/27/19 09:27 O2 Sat by Pulse Oximetry (%) Laboratory Tests 08/24/19 08/25/19 08/25/19 15:57 08:50 08:50 WBC 11.0 H RBC 4.72 Hgb 8.3 L Hct 27.0 L D MCV 57.1 L MCH 17.6 L MCHC 30.9 L RDW 17.9 H Plt Count 474 H MPV 9.3 Sodium 141 Potassium 3.7 Chloride 107 Carbon Dioxide 26 Anion Gap 7 L BUN 6.9 L Creatinine 0.6 Est GFR (CKD-EPI)AfAm 141.76 Est GFR (CKD-EPI)NonAf 122.31 Random Glucose 96 Calcium 8.9 Total Bilirubin 0.4 AST 44 H ALT 52 Alkaline Phosphatase 76 Total Protein 7.1 Albumin 2.8 L Urine Color Urine Appearance Urine pH Ur Specific [place] Urine Protein Urine Glucose (UA) Urine Ketones Urine Blood Urine Nitrite Urine Bilirubin Urine Urobilinogen Ur Leukocyte Esterase Urine WBC (Auto) Urine RBC (Auto) Urine Casts (Auto) U Epithel Cells (Auto) Urine Bacteria (Auto) POC Urine HCG, Qual Negative RPR Titer 08/25/19 08/26/19 08:50 09:50 WBC RBC Hgb Hct MCV MCH MCHC RDW Plt Count MPV Sodium Potassium Chloride Carbon Dioxide Anion Gap BUN Creatinine Est GFR (CKD-EPI)AfAm Est GFR (CKD-EPI)NonAf Random Glucose Calcium Total Bilirubin AST ALT Alkaline Phosphatase Total Protein Albumin Urine Color Yellow Urine Appearance Cloudy Urine pH 7.0 Ur Specific [place] 1.021 Urine Protein Trace Urine Glucose (UA) Negative Urine Ketones Negative Urine Blood Negative Urine Nitrite Positive H Urine Bilirubin Negative Urine Urobilinogen 0.2 Ur Leukocyte Esterase 2+ H Urine WBC (Auto) 99 Urine RBC (Auto) 3 Urine Casts (Auto) 76 U Epithel Cells (Auto) 7.4 Urine Bacteria (Auto) >9000 POC Urine HCG, Qual RPR Titer Nonreactive will repeat cbc and u/a aaox3 ambulating no acute distress Assessment: 08/27/19 11:00 withdrawals Plan: continue detox increase fluids f/u repeated labs
[2019-08-27 17:39] LABS: PH,URINE 7.5 (5.0-8.0); URINE APPEARANCE CLOUDY; URINE BILIRUBIN NEGATIVE (NEGATIVE); URINE COLOR YELLOW; URINE GLUCOSE (UA) NEGATIVE (NEGATIVE); URINE KETONE NEGATIVE (NEGATIVE); URINE LEUK ESTERASE NEGATIVE (NEGATIVE); URINE NITRITE NEGATIVE (NEGATIVE); URINE PROTEIN NEGATIVE (NEGATIVE); URINE UROBILINOGEN 0.2 mg/dL (0.2-1.0)
[2019-08-27] MEDS: METHOCARBAMOL 500 MG TABLET PO PRN (19:20)
[2019-08-27] MEDS: THIAMINE HCL 100 MG TABLET (FP) PO SCH (22:07)
[2019-08-27] MEDS: QUEtiapine FUMARATE 50 MG TABLET PO SCH (22:07)
[2019-08-27] MEDS: MIRTAZAPINE 15 MG TABLET (FP) PO SCH (22:07)
[2019-08-28] MEDS: hydrOXYzine PAMOATE 25 MG CAPSULE (FP) PO PRN ×3 (06:14→22:09)
[2019-08-28] MEDS: GABAPENTIN 300 MG CAPSULE (FP) PO SCH ×3 (06:14→22:08)
[2019-08-28] MEDS ORDERED: METHADONE HCL 10 MG TABLET (FOR DETOX USE ONLY) PO ONE (10:00)
[2019-08-28] MEDS: METHOCARBAMOL 500 MG TABLET PO PRN (10:41)
[2019-08-28] MEDS: SULFAMETHOXAZOLE/TRIMETHOPRIM 800MG/160MG D.S. TABLET PO SCH ×2 (10:42→22:08)
[2019-08-28] MEDS: BACITRACIN 15 GM TUBE TOPICAL OINTMENT TP SCH ×2 (10:42→23:38)
[2019-08-28] MEDS: PRENATAL VITAMINS W/ FOLIC ACID TABLET (FP) PO SCH (10:43)
--- NOTE | 2019-08-28 13:04 | PN ---
[facility] CIWA - CIWA Score Nausea/Vomitin-No Nausea/No Vomiting Muscle Tremors: 2 Anxiety: 2 Agitation: 2 Paroxysmal Sweats: 2 Orientation: 0-Oriented Tacttile Disturbances: 0-None Auditory Disturbances: 0-None Visual Disturbances: 0-None Headache: 0-None Present CIWA-Ar Total Score: 8 BHS COWS - Scale Resting Pulse: 1= [place] 81-100 Sweatin= Chills/Flushing Restless Observation: 1= Difficult to Sit Still Pupil Size: 0= Normal to Room Light Bone or Joint Aches: 0= None Runny Nose/ Eye Tearin= Nasal Congestion GI Upset > 30mins: 0= None Tremor Observation of Outstretched Hands: 1= Tremor [place], Not Seen Yawning Observation: 1= 1-2x During Session Anxiety or Irritability: 1=Feels Anxious/Irritable Goose Flesh Skin: 0=Smooth Skin COWS Score: 7 S Progress Note (SOAP) Subjective: sweats shakes interrupted sleep Objective: 08/28/19 13:00 Vital Signs Temperature 97.5 F L 08/28/19 09:54 Pulse Rate 82 08/28/19 09:54 Respiratory Rate 20 08/28/19 09:54 Blood Pressure 100/60 08/28/19 09:54 O2 Sat by Pulse Oximetry (%) Laboratory Tests 08/24/19 08/25/19 08/25/19 15:57 08:50 08:50 WBC 11.0 H RBC 4.72 Hgb 8.3 L Hct 27.0 L D MCV 57.1 L MCH 17.6 L MCHC 30.9 L RDW 17.9 H Plt Count 474 H MPV 9.3 Sodium 141 Potassium 3.7 Chloride 107 Carbon Dioxide 26 Anion Gap 7 L BUN 6.9 L Creatinine 0.6 Est GFR (CKD-EPI)AfAm 141.76 Est GFR (CKD-EPI)NonAf 122.31 Random Glucose 96 Calcium 8.9 Total Bilirubin 0.4 AST 44 H ALT 52 Alkaline Phosphatase 76 Total Protein 7.1 Albumin 2.8 L Urine Color Urine Appearance Urine pH Ur Specific [place] Urine Protein Urine Glucose (UA) Urine Ketones Urine Blood Urine Nitrite Urine Bilirubin Urine Urobilinogen Ur Leukocyte Esterase Urine WBC (Auto) Urine RBC (Auto) Urine Casts (Auto) U Epithel Cells (Auto) Urine Bacteria (Auto) POC Urine HCG, Qual Negative RPR Titer 08/25/19 08/26/19 08/27/19 08:50 09:50 14:45 WBC RBC Hgb Hct MCV MCH MCHC RDW Plt Count MPV Sodium Potassium Chloride Carbon Dioxide Anion Gap BUN Creatinine Est GFR (CKD-EPI)AfAm Est GFR (CKD-EPI)NonAf Random Glucose Calcium Total Bilirubin AST ALT Alkaline Phosphatase Total Protein Albumin Urine Color Yellow Yellow Urine Appearance Cloudy Cloudy Urine pH 7.0 7.5 Ur Specific [place] 1.021 1.018 Urine Protein Trace Negative Urine Glucose (UA) Negative Negative Urine Ketones Negative Negative Urine Blood Negative Negative Urine Nitrite Positive H Negative Urine Bilirubin Negative Negative Urine Urobilinogen 0.2 0.2 Ur Leukocyte Esterase 2+ H Negative Urine WBC (Auto) 99 Urine RBC (Auto) 3 Urine Casts (Auto) 76 U Epithel Cells (Auto) 7.4 Urine Bacteria (Auto) >9000 POC Urine HCG, Qual RPR Titer Nonreactive uti improving with current ABX aaox3 ambulating no acute distress Assessment: 08/28/19 13:04 withdrawals Plan: continue detox d/c in am
[2019-08-28] MEDS: THIAMINE HCL 100 MG TABLET (FP) PO SCH (22:08)
[2019-08-28] MEDS: MIRTAZAPINE 15 MG TABLET (FP) PO SCH (22:08)
[2019-08-28] MEDS: QUEtiapine FUMARATE 50 MG TABLET PO SCH (22:08)
[2019-08-29] MEDS: GABAPENTIN 300 MG CAPSULE (FP) PO SCH (05:53)
[2019-08-29] MEDS: hydrOXYzine PAMOATE 25 MG CAPSULE (FP) PO PRN (05:54)
[2019-08-29] MEDS ORDERED: METHADONE HCL 5 MG TABLET (FOR DETOX USE ONLY) PO ONE (06:00)
[2019-08-29 07:44] VITALS: BP 112/55; PULSE 73; TEMP 97.2
--- NOTE | 2019-08-29 09:37 | DS ---
[facility] Detox Discharge Summary Admission Date: 08/24/19 Discharge Date: 08/29/19 - History Present History: Alcohol Dependence, Sedative Dependence - Physical Exam Results Vital Signs: Vital Signs Temperature 97.2 F L 08/29/19 07:43 Pulse Rate 73 08/29/19 07:43 Respiratory Rate 18 08/29/19 07:43 Blood Pressure 112/55 L 08/29/19 07:43 O2 Sat by Pulse Oximetry (%) Pertinent Admission Physical Exam Findings: pt arrived in [facility] Laboratory Tests 08/24/19 08/25/19 08/25/19 15:57 08:50 08:50 WBC 11.0 H RBC 4.72 Hgb 8.3 L Hct 27.0 L D MCV 57.1 L MCH 17.6 L MCHC 30.9 L RDW 17.9 H Plt Count 474 H MPV 9.3 Sodium 141 Potassium 3.7 Chloride 107 Carbon Dioxide 26 Anion Gap 7 L BUN 6.9 L Creatinine 0.6 Est GFR (CKD-EPI)AfAm 141.76 Est GFR (CKD-EPI)NonAf 122.31 Random Glucose 96 Calcium 8.9 Total Bilirubin 0.4 AST 44 H ALT 52 Alkaline Phosphatase 76 Total Protein 7.1 Albumin 2.8 L Urine Color Urine Appearance Urine pH Ur Specific [place] Urine Protein Urine Glucose (UA) Urine Ketones Urine Blood Urine Nitrite Urine Bilirubin Urine Urobilinogen Ur Leukocyte Esterase Urine WBC (Auto) Urine RBC (Auto) Urine Casts (Auto) U Epithel Cells (Auto) Urine Bacteria (Auto) POC Urine HCG, Qual Negative RPR Titer 08/25/19 08/26/19 08/27/19 08:50 09:50 14:45 WBC RBC Hgb Hct MCV MCH MCHC RDW Plt Count MPV Sodium Potassium Chloride Carbon Dioxide Anion Gap BUN Creatinine Est GFR (CKD-EPI)AfAm Est GFR (CKD-EPI)NonAf Random Glucose Calcium Total Bilirubin AST ALT Alkaline Phosphatase Total Protein Albumin Urine Color Yellow Yellow Urine Appearance Cloudy Cloudy Urine pH 7.0 7.5 Ur Specific [place] 1.021 1.018 Urine Protein Trace Negative Urine Glucose (UA) Negative Negative Urine Ketones Negative Negative Urine Blood Negative Negative Urine Nitrite Positive H Negative Urine Bilirubin Negative Negative Urine Urobilinogen 0.2 0.2 Ur Leukocyte Esterase 2+ H Negative Urine WBC (Auto) 99 Urine RBC (Auto) 3 Urine Casts (Auto) 76 U Epithel Cells (Auto) 7.4 Urine Bacteria (Auto) >9000 POC Urine HCG, Qual RPR Titer Nonreactive pt arrived in withdrawals aaox3 ambulating no acute distress - Treatment Hospital Course: Detox Protocol Followed, Detoxed Safely, Responded well, Discharged Condition Good, Rehab Referral Accepted Patient has Accepted a Rehab Referral to: referral provided - Medication Discharge Medications: Ambulatory Orders Buspirone HCl [Buspar -] 7.5 mg PO BID 06/15/19 Mirtazapine [Remeron -] 15 mg PO HS #30 tablet 06/19/19 Quetiapine Fumarate [Seroquel -] 50 mg PO HS #30 tablet 06/19/19 Gabapentin 300 mg PO TID #60 capsule 06/20/19 - Diagnosis (1) Alcohol dependence with uncomplicated withdrawal Current Visit: Yes Status: Chronic (2) Anxiety and depression Current Visit: Yes Status: Acute (3) Cellulitis Current Visit: Yes Status: Acute Qualifiers: Site of cellulitis: extremity Site of cellulitis of extremity: upper extremity Laterality: right Qualified Code(s): L03.113 - Cellulitis of right upper limb (4) Sedative, hypnotic or anxiolytic dependence, uncomplicated Current Visit: Yes Status: Chronic (5) Substance-induced anxiety disorder Current Visit: Yes Status: Acute (6) Substance-induced sleep disorder Current Visit: Yes Status: Acute (7) MDD (major depressive disorder) Current Visit: Yes Status: Chronic (8) PTSD (post-traumatic stress disorder) Current Visit: Yes Status: Chronic (9) Seizure concurrent with and due to anxiolytic withdrawal Current Visit: Yes Status: Resolved (10) Abscess Current Visit: No Status: Acute (11) Cocaine dependence Current Visit: No Status: Acute Qualifiers: Substance use status: uncomplicated Qualified Code(s): F14.20 - Cocaine dependence, uncomplicated (12) IVDU (intravenous drug user) Current Visit: No Status: Acute (13) Opioid dependence with withdrawal Current Visit: Yes Status: Acute (14) Substance-induced sleep disorder Current Visit: No Status: Acute (15) Asthma Current Visit: No Status: Chronic Qualifiers: Asthma severity: mild Asthma persistence: intermittent Asthma complication type: with acute exacerbation Qualified Code(s): J45.21 - Mild intermittent asthma with (acute) exacerbation (16) Benzodiazepine dependence Current Visit: No Status: Chronic (17) Elevated liver enzymes Current Visit: No Status: Chronic (18) History of bipolar disorder Current Visit: No Status: Chronic (19) History of posttraumatic stress disorder (PTSD) Current Visit: No Status: Chronic (20) Insomnia Current Visit: Yes Status: Chronic Qualifiers: Insomnia type: unspecified Qualified Code(s): G47.00 - Insomnia, unspecified (21) Substance induced mood disorder Current Visit: No Status: Chronic - AMA Did Patient Leave Against Medical Advice: No
[2019-08-29] MEDS: PRENATAL VITAMINS W/ FOLIC ACID TABLET (FP) PO SCH (10:30)
[2019-08-29] MEDS: SULFAMETHOXAZOLE/TRIMETHOPRIM 800MG/160MG D.S. TABLET PO SCH (10:30)
[2019-08-29] MEDS: BACITRACIN 15 GM TUBE TOPICAL OINTMENT TP SCH (10:30)
== END 2019-08-29 09:30 | disposition home or self-care (01) | DRG 773 ==
LOC: YASAS 13:01 → Y6N 17:20
PROVIDERS: ADMIT Surgery; ATTEND Surgery
PROC: HZ2ZZZZ Detoxification Services for Substance Abuse Treatment (ICD-10-PCS; principal; 2019-08-24)
DX: F11.23 Opioid dependence with withdrawal (principal); F10.230 Alcohol dependence with withdrawal, uncomplicated; F13.230 Sedative, hypnotic or anxiolytic dependence with withdrawal, uncomplicated; F14.20 Cocaine dependence, uncomplicated; F19.280 Other psychoactive substance dependence with psychoactive substance-induced anxiety disorder; F19.282 Other psychoactive substance dependence with psychoactive substance-induced sleep disorder; F19.24 Other psychoactive substance dependence with psychoactive substance-induced mood disorder; F43.10 Post-traumatic stress disorder, unspecified; F41.8 Other specified anxiety disorders; F32.9 Major depressive disorder, single episode, unspecified; G47.00 Insomnia, unspecified; L03.113 Cellulitis of right upper limb; J45.21 Mild intermittent asthma with (acute) exacerbation; G40.509 Epileptic seizures related to external causes, not intractable, without status epilepticus; N39.0 Urinary tract infection, site not specified; R94.5 Abnormal results of liver function studies; D64.9 Anemia, unspecified; Z91.018 Allergy to other foods
CPT/HCPCS: 36415; 80053; 81003; 81025; 85027; 86593; J0735

== ENCOUNTER 2019-11-04 01:56 | Inpatient (IN) | payer BC ==
--- NOTE | 2019-11-04 02:31 | PDOC ---
Attending Attestation - Resident Resident Name: Reinaldo Walters - ED Attending Attestation I have performed the following: I have examined & evaluated the patient, The case was reviewed & discussed with the resident, I agree w/resident's findings & plan - HPI HPI: 11/04/19 02:48 see resident hpi - Physicial Exam PE: 11/04/19 02:48 agree with resident exam - Medical Decision Making 11/04/19 02:49 29-year-old female with history of IV drug abuse now with multiple wounds to bilateral arms and legs, nonhealing status post wound care admission and IV antibiotics at another facility according to her given history Last reported heroin use was this morning Patient will be admitted due to multiple areas of cellulitis and fluctuance for IV antibiotics, blood cultures and impending opiate withdrawal
--- NOTE | 2019-11-04 02:39 | PDOC ---
History of Present Illness - General Chief Complaint: Wound Stated Complaint: INFECTIONS/HANDS Time Seen by Provider: 11/04/19 02:30 History Source: Patient Exam Limitations: No Limitations - History of Present Illness Initial Comments: 11/04/19 03:34 29 yo female pmh of cocaine, heroin and benzo abuse, IV drug use and recent admission to [facility] presents to the ED with multiple skin infections and wounds. States the open AC wounds look better than last week Pt states she was admitted 1 week ago, no antibiotics given, saw surgical team, and was DC with PO antibiotics. Pt would like detox. Denies F/C/N/V, CP, SOB Past History - Past Medical History Allergies/Adverse Reactions: Allergies Allergy/AdvReac Type Severity Reaction Status Date / Time No Known Drug Allergies Allergy Verified 11/04/19 02:19 raspberries Allergy Mild Swelling Uncoded 11/04/19 02:19 Home Medications: Ambulatory Orders Buspirone HCl [Buspar -] 7.5 mg PO BID 06/15/19 Gabapentin 300 mg PO TID #60 capsule 06/20/19 Mirtazapine [Remeron -] 15 mg PO HS #30 tablet 08/29/19 Quetiapine Fumarate [Seroquel -] 50 mg PO HS #30 tablet 08/29/19 Sulfamethoxazole/Trimethoprim [Bactrim DS -] 1 each PO BID #10 tablet 08/29/19 Anemia: Yes (no blood transfusion ,non compliance) Asthma: Yes (on albuterol inhaler) Cancer: No Cardiac Disorders: No CVA: No COPD: No CHF: No Dementia: No Diabetes: No GI Disorders: No Disorders: No HTN: No Hypercholesterolemia: No Kidney Stones: No Liver Disease: No Seizures: Yes (last 2016 withdrawal) Thyroid Disease: No - Surgical History Abdominal Surgery: No Appendectomy: No Cardiac Surgery: No Cholecystectomy: No Lung Surgery: No Neurologic Surgery: No Orthopedic Surgery: No - Reproductive History PID: No - Psycho Social/Smoking Cessation Hx Smoking History: Current every day smoker Have you smoked in the past 12 months: No Information on smoking cessation initiated: No Hx Alcohol Use: No Drug/Substance Use Hx: Yes (herion , cocaine, xanax) Substance Use Type: Cocaine, Heroin, Tranquilizers Hx Substance Use Treatment: Yes ([facility] 06/15/19 to 06/20/19) Review of Systems - Review of Systems Constitutional: No: Chills, Fever Respiratory: No: Shortness of Breath Cardiac (ROS): No: Chest Pain, Edema ABD/GI: No: Constipated, Diarrhea, Nausea, Vomiting : No: Burning, Dysuria, Flank Pain, Hematuria Integumentary: Yes: Other (multiple erythematous lesions. Bilateral AC joint lesions open with drainage) Neurological: No: Headache, Numbness, Paresthesia, Ataxia, Dizziness *Physical Exam - Vital Signs Last Vital Signs Temp Pulse Resp BP Pulse Ox 97.9 F 115 H 18 149/80 99 11/04/19 02:19 11/04/19 02:19 11/04/19 02:19 11/04/19 02:11/04/19 02:19 - Physical Exam General Appearance: Yes: Nourished, Appropriately Dressed. No: Apparent Distress HEENT: positive: EOMI Neck: positive: Supple. negative: Rigid Respiratory/Chest: positive: Lungs Clear, Normal Breath Sounds. negative: Respiratory Distress, Accessory Muscle Use, Crackles, Rales, Rhonchi, Stridor, Wheezing Cardiovascular: positive: Regular Rhythm, S1, S2, Tachycardia. negative: Edema , JVD, Murmur Vascular Pulses: Dorsalis-Pedis (R): 4+, Doralis-Pedis (L): 4+ Gastrointestinal/Abdominal: positive: Flat, Soft. negative: Distended, Guarding , Rebound, Tenderness Musculoskeletal: negative: CVA Tenderness Extremity: positive: Normal Capillary Refill, Normal Inspection, Normal Range of Motion Integumentary: positive: Erythema, Rash, Other (bilateral open wounds to AC joint with drainage) Neurologic: positive: Fully Oriented, Alert, Normal Mood/Affect, Normal Response ED Treatment Course - LABORATORY CBC & Chemistry Diagram: 11/04/19 03:00 11/04/19 03:00 Medical Decision Making - Medical Decision Making 11/04/19 06:23 29 yo female pmh of cocaine, heroin and benzo abuse, IV drug use and recent admission to [facility] presents to the ED with multiple skin infections and wounds. States the open AC wounds look better than last week Pt states she was admitted 1 week ago, no antibiotics given, saw surgical team, and was DC with PO antibiotics. Pt would like detox. Denies F/C/N/V, CP, SOB Vitals show elevated HR EKG poor quality, NSR without ischemic changes Pt has many skin cellulitic infections and 2 open wounds in the bilateral AC related to excessive IV drug abuse pt is not safe for detox until infections treated. Will cover with broad spectrum antibiotics and admit to med surg pt accepted for admission Discharge - Discharge Information Problems reviewed: Yes Clinical Impression/Diagnosis: IVDU (intravenous drug user), Cellulitis Condition: Stable - Admission Yes - Follow up/Referral - Patient Discharge Instructions - Post Discharge Activity
[2019-11-04] MEDS ORDERED: SODIUM CHLORIDE 1,000 ML IV STA (03:18)
[2019-11-04] MEDS ORDERED: PIPERACILLIN/TAZOB 4.5 GM 4.5 GM in DEXTROSE 5%-WATER 100 ML IVPB ONE (03:19)
[2019-11-04] MEDS ORDERED: ONDANSETRON 4 MG/2 ML VIAL IVPUSH ONE (03:19)
[2019-11-04] MEDS ORDERED: VANCOMYCIN 1,000 MG in DEXTROSE 5%-WATER - 250 ML IVPB ONE (03:19)
[2019-11-04 03:32] LABS: EOS % 4.1 % (0-4.5); HEMATOCRIT 24.8 % (32.4-45.2); HEMOGLOBIN 7.7 GM/dL (10.7-15.3); LYMPH % 23.4 % (8-40); MCHC 30.9 g/dl (32.0-36.0); MEAN CELL VOLUME 53.4 fl (80-96); MEAN PLT VOLUME 8.8 fl (7.5-11.1); MONO % 8.8 % (3.8-10.2); NEUT % 62.7 % (42.8-82.8); PLATELET COUNT 473 K/MM3 (134-434); RBC 4.64 M/mm3 (3.60-5.2); RDW 18.9 % (11.6-15.6); WHITE BLOOD COUNT 10.1 K/mm3 (4.0-10.0)
[2019-11-04 03:36] LABS: MCH 16.5 pg (25.7-33.7)
[2019-11-04 03:37] LABS: VENOUS PC02 40.3 mmHg (38-52); VENOUS PH 7.44 (7.31-7.41); VENOUS PO2 79.5 mmHg (28-48)
[2019-11-04 03:42] LABS: INR 1.01 (0.83-1.09); PROTHROMBIN TIME (PATIENT) 11.9 SEC (9.7-13.0)
[2019-11-04 03:45] LABS: ACTIVATED PTT 32.4 SECONDS (25.2-36.5)
[2019-11-04] MEDS ORDERED: cloNIDine HCL 0.1 MG TABLET PO ONE (03:49)
[2019-11-04] MEDS ORDERED: ONDANSETRON 4 MG/2 ML VIAL ONE (04:10)
[2019-11-04] MEDS ORDERED: VANCOMYCIN 1 GRAM (PRE-DOCKED) 1,000 MG/250 ML BAG IVPB ONE (04:10)
[2019-11-04] MEDS ORDERED: PIPERACILLIN/TAZOB 4.5 GM 4.5 GM/100 ML BAG IVPB ONE (04:10)
[2019-11-04] MEDS ORDERED: cloNIDine HCL 0.1 MG TABLET ONE (04:18)
[2019-11-04 04:44] LABS: ALBUMIN 3.1 g/dl (3.4-5.0); BILIRUBIN,TOTAL 0.3 mg/dL (0.2-1); BLOOD UREA NITROGEN 12.7 mg/dL (7-18); CALCIUM 9.1 mg/dL (8.5-10.1); CREATININE 0.8 mg/dL (0.55-1.3); POTASSIUM 3.3 mmol/L (3.5-5.1); TOT PROT 8.2 g/dl (6.4-8.2)
[2019-11-04 05:14] LABS: EPI CELLS 17.4 /HPF (0-5/HPF); HYALINE CASTS 46 /lpf (0-8); URINE APPEARANCE CLOUDY; URINE BACTERIA 562.9 /hpf (NEGATIVE); URINE BILIRUBIN NEGATIVE (NEGATIVE); URINE COLOR YELLOW; URINE GLUCOSE (UA) NEGATIVE (NEGATIVE); URINE KETONE TRACE (NEGATIVE); URINE LEUK ESTERASE 3+ (NEGATIVE); URINE NITRITE NEGATIVE (NEGATIVE); URINE PROTEIN 2+ (NEGATIVE); URINE WBC 72 /hpf (0-5)
[2019-11-04 05:28] LABS: METHADONE, UR NEGATIVE ng/ml (CUTOFF=300); PHENCYCLIDINE,URINE NEGATIVE ng/ml (CUTOFF=25); URINE AMPHETAMINES NEGATIVE ng/ml (CUTOFF=500); URINE BARBITURATES NEGATIVE ng/ml (CUTOFF=200)
[2019-11-04 05:31] LABS: COCAINE, UR POSITIVE ng/ml (CUTOFF=300); OPIATES, URI POSITIVE ng/ml (CUTOFF=300); URINE BENZODIAZEPINES POSITIVE ng/ml (CUTOFF=200)
[2019-11-04] MEDS ORDERED: ACETAMINOPHEN 325 MG TABLET (FP) PO PRN (05:31)
[2019-11-04 05:32] LABS: URINE RBC 5.2 /hpf (0-4)
[2019-11-04] MEDS ORDERED: POTASSIUM CHLORIDE TABS 20 MEQ TABLET.ER (FP) PO ONE ×2 (05:36→06:15)
--- NOTE | 2019-11-04 05:41 | PN ---
Teaching Attending Note Name of Resident: Rafiq Haddad ATTENDING PHYSICIAN STATEMENT I saw and evaluated the patient. I reviewed the resident's note and discussed the case with the resident. I agree with the resident's findings and plan as documented. SUBJECTIVE: Patient is a 29 year old woman with a PMH of Polysubstance abuse (cocaine, heroin, xanax), IV drug use, PTSD, Bipolar disorder, Asthma, Seizure and Tobacco use who presents to the ER with multiple skin infections and wounds in both arms. Recent admission to [facility]. Patient states she was admitted 1 week ago - no antibiotics given, was seen by Surgery and was discharged with PO antibiotics. Says she would like a Detox referral. Denies fever, chills, nausea, vomiting, chest pain, SOB, abdominal pain, dysuria or changes in bowel habits. LMP was within the past 1 week and she has menorrhagia. Has FH of breast cancer, lung cancer and substance abuse disorder. OBJECTIVE: Alert and unkempt Vital Signs Period Temp Pulse Resp BP Sys/López Pulse Ox Last 24 Hr 97.9 F 115 18 149/80 99 HEENT: No Jaundice, eye redness or discharge, PERRLA, EOMI. Normocephalic, atraumatic. External ears are normal and hearing is grossly intact. No nasal discharge. Neck: Supple, nontender. No palpable adenopathy or thyromegaly. No JVD Chest: Good effort. Clear to auscultation and percussion. Heart: Regular. No S3, rub or murmur Abdomen: Not distended, soft, nontender and no HSM. No rebound or guarding. Normal bowel sounds. Ext: Peripheral pulses intact. No leg edema. Open wounds in both forearms and left antecubital fossa. Indurated abscess in LLE. Skin: Warm and dry. No petechiae, rash or ecchymosis. Neuro: Alert. Oriented x3. CN 2-12 grossly intact. Sensation grossly intact in all four extremities and DTR are symmetric. Psych: Appropriate mood and affect. Good insight. Current Medications Generic Name Dose Route Start Last Admin Trade Name Freq PRN Reason Stop Dose Admin Acetaminophen 650 mg 11/04/19 05:31 Tylenol - PO Q4H PRN PAIN LEVEL 4 - 6 Heparin Sodium (Porcine) 5,000 unit 11/04/19 06:00 Heparin - SQ TID [facility] Potassium Chloride 40 meq 11/04/19 05:36 K-Dur - PO 11/04/19 05:37 ONCE ONE Home Medications Medication Instructions Recorded Buspirone HCl [Buspar -] 7.5 mg PO BID 06/15/19 Gabapentin 300 mg PO TID #60 capsule 06/20/19 Mirtazapine [Remeron -] 15 mg PO HS #30 tablet 08/29/19 Quetiapine Fumarate [Seroquel -] 50 mg PO HS #30 tablet 08/29/19 Sulfamethoxazole/Trimethoprim 1 each PO BID #10 tablet 08/29/19 [Bactrim DS -] Abnormal Lab Results 11/04/19 11/04/19 11/04/19 03:00 03:00 03:00 WBC 10.1 H Hgb 7.7 L Hct 24.8 L MCV 53.4 L D MCH 16.5 L MCHC 30.9 L RDW 18.9 H Plt Count 473 H VBG pH POC VBG pO2 VBG O2 Sat (Tanvi) VBG Base Excess Potassium 3.3 L Random Glucose 125 H AST 52 H ALT 80 H Albumin 3.1 L Urine Protein 2+ H Urine Ketones Trace H Ur Leukocyte Esterase 3+ H Opiates Screen Benzodiazepines Screen Cocaine Screen 11/04/19 11/04/19 03:00 03:00 WBC Hgb Hct MCV MCH MCHC RDW Plt Count VBG pH 7.44 H POC VBG pO2 79.5 H VBG O2 Sat (Tanvi) 96.1 H VBG Base Excess 3.1 H Potassium Random Glucose AST ALT Albumin Urine Protein Urine Ketones Ur Leukocyte Esterase Opiates Screen Positive A* Benzodiazepines Screen Positive A* Cocaine Screen Positive A* ASSESSMENT AND PLAN: 1. Multiple skin abscesses, wounds and cellulitis - All sequelae of IV drug use. Sepsis workup done and will treat with IV Vancomycin. Get MRI of left forearm to rule out osteomyelitis and ECHO to rule out endocarditis. Consult ID , Wound care and Surgery (for I&D). Provide daily wound care. Treat UTI with IV Rocephin and get HIV testing and hepatitis serology. Hypokalemia is unexplained - will check serum Mg+, phosphate and treat with IV and PO KCL. CXR shows hyperinflated lungs but no active infiltrates. EKG shows NSR, LAE and septal infarct of undetermined age. Urine toxicology showed opiates, cocaine and benzos. Will monitor for drug withdrawal and do neurochecks. Implement seizure, fall and aspiration precautions. Counseled patient about abstaining from illicit drugs. Will consult automotive glass specialist and refer to drug detox upon discharge. Will continue comprehensive care for all of patients comorbid conditions. 2. Hypoalbuminemia - Possibly due to combined effects of proteinuria, malnutrition and inflammation associated with comorbid chronic conditions. Will ensure adequate dietary protein intake and also consult research contracts supervisor. 3. Tobacco Use Counseled on risks associated with tobacco use. We will provide patient all the necessary assistance to facilitate smoking cessation and prescribe Nicotine patch. 4. Obesity Counseled on the risks associated with obesity. Will provide patient all the necessary assistance, counseling and positive reinforcement to facilitate weight loss. Consult research contracts supervisor. 5. Low MCV Anemia - Likely chiefly due to menorrhagia. Will get transvaginal sonogram, PSYCHOLOGIST PERSONNEL consult, serial stool guaiacs, reticulocyte count and iron studies. Would give IV Venofer 500 mg x 2 doses - prompt anemia correction by iron repletion will preempt blood transfusion. 6. DVT prophylaxis - Lovenox 40 mg SQ q 24 hours. 7. Advance directives - Full code
[2019-11-04] MEDS: HEPARIN NA (PORCINE) 5,000 UNITS/ML 1ML VIAL SQ SCH ×3 (06:06→21:27)
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
[2019-11-04] MEDS ORDERED: KCL 10 MEQ IVPB 10 MEQ/100 ML INFUS.BAG IVPB ONE ×2 (07:50→12:59)
[2019-11-04] MEDS ORDERED: CEFTRIAXONE 1 GM/50 ML BAG ONE (07:50)
[2019-11-04] MEDS: KCL 10 MEQ IVPB 10 MEQ/100 ML INFUS.BAG IVPB SCH ×2 (08:15→12:58)
[2019-11-04] MEDS ORDERED: cloNIDine HCL 0.1 MG TABLET PO PRN (08:19)
[2019-11-04] MEDS ORDERED: IRON SUCROSE INJECTION 300 MG in SODIUM CHLORIDE 235 ML IVPB ONE (09:00)
--- NOTE | 2019-11-04 09:06 | EKG ---
Test Reason : Blood Pressure : / mmHG Vent. Rate : 096 BPM Atrial Rate : 096 BPM P-R Int : 176 ms QRS Dur : 062 ms QT Int : 340 ms P-R-T Axes : 056 024 059 degrees QTc Int : 429 ms POOR DATA QUALITY, INTERPRETATION MAY BE ADVERSELY AFFECTED NORMAL SINUS RHYTHM POSSIBLE LEFT ATRIAL ENLARGEMENT SEPTAL INFARCT , AGE UNDETERMINED ABNORMAL ECG NO PREVIOUS ECGS AVAILABLE Confirmed by Raymond Powell MD ([id number]) on 11/04/2019 9:06:06 AM Referred By: Confirmed By:Raymond Powell MD
[2019-11-04] MEDS ORDERED: METHADONE HCL 10 MG TABLET PO ONE (09:30)
[2019-11-04] MEDS: CEFTRIAXONE 1 GM in DEXTROSE 5%-WATER - 50 ML IVPB SCH ×2 (09:44→10:03)
[2019-11-04 09:54] LABS: ANISOCYTOSIS 2+; MACROCYTOSIS 0; PLATELET ESTIMATE NORMAL; ROULEAU 2+; TARGET CELLS 2+
[2019-11-04] MEDS ORDERED: METHADONE HCL 10 MG TABLET ONE (09:55)
[2019-11-04] MEDS ORDERED: VANCOMYCIN 1 GM in D5W (PRE-DOCKED) 1,000 MG/250 ML IVPB SCH (10:00)
[2019-11-04] MEDS: diazePAM 5 MG TABLET PO PRN ×2 (11:17→20:53)
--- NOTE | 2019-11-04 11:57 | CONSULT ---
- Consultation REQUESTING PROVIDER: CONSULT REQUEST: We have been asked to surgically evaluate this patient for b/l antecubital wounds. PCP:Rory Golden MD HISTORY OF PRESENT ILLNESS: 29 y/o F w/ PMHx asthma, PTSD, anxiety, bipolar depression, and IVDU/polysubstance abuse (injects heroine/cocaine, PO xanax) now in ED with b/l antecubital wounds. Pt reports wounds have been present over a week after injecting cocaine. States she formed an abscess with opened on its own a few days ago and drained some thick white fluid. Was seen at [facility] ER and given bactrim but did not complete the course. Reports regular abscess formation to ue/les due to IVDU. Denies fevers/chills. n/v/d at home. PAST MEDICAL HISTORY: Asthma, PTSD, anxiety, bipolar depression, and polysubstance (injects heroine, injects cocaine, PO xanax) PAST SURGICAL HISTORY: Denies Home Medications Medication Instructions Recorded NK [No Known Home Medication] 11/04/19 Allergies Allergy/AdvReac Type Severity Reaction Status Date / Time No Known Drug Allergies Allergy Verified 11/04/19 02:19 raspberries Allergy Mild Swelling Uncoded 11/04/19 02:19 REVIEW OF SYSTEMS: CONSTITUTIONAL: Absent: fever, chills, diaphoresis CARDIOVASCULAR: Absent: chest pain, syncope RESPIRATORY: Absent: cough, shortness of breath GASTROINTESTINAL: Absent: abdominal pain, abdominal distension PHYSICAL EXAM: GENERAL: Awake, alert, and fully oriented, in no acute distress. HEAD: Normal with no signs of trauma. UPPER EXTREMITIES: RUE with approx 1x1cm circular ulcer at antecubital, tracks approx 1cm, + fibrinous exudate, +scant serous drainage, no ttp, surrounding area indurated. L antecubital with approx 4x2cm open ulcer with moderate fibrinous exudate + serous drainage, + surrounding induration. 2+ b/l radial/ulnar pulses, no tracking erythema. No peripheral edema. LOWER EXTREMITIES: RLE with multiple areas of erythema/ induration around medial aspect of distal thigh at sites of prior injection. Approx 2x2cm circular area of induration/erythema at medial malleolus. No ttp. no areas of fluctuance. Vital Signs Temperature 97.8 F 11/04/19 09:44 Pulse Rate 88 11/04/19 09:44 Respiratory Rate 18 11/04/19 09:44 Blood Pressure 115/66 11/04/19 09:44 O2 Sat by Pulse Oximetry (%) 98 11/04/19 09:44 Lab Results WBC 10.1 K/mm3 (4.0-10.0) H 11/04/19 03:00 RBC 4.64 M/mm3 (3.60-5.2) 11/04/19 03:00 Hgb 7.7 GM/dL (10.7-15.3) L 11/04/19 03:00 Hct 24.8 % (32.4-45.2) L 11/04/19 03:00 MCV 53.4 fl (80-96) L D 11/04/19 03:00 MCHC 30.9 g/dl (32.0-36.0) L 11/04/19 03:00 RDW 18.9 % (11.6-15.6) H 11/04/19 03:00 Plt Count 473 K/MM3 (134-434) H 11/04/19 03:00 Sodium 141 mmol/L (136-145) 11/04/19 03:00 Potassium 3.3 mmol/L (3.5-5.1) L 11/04/19 03:00 Chloride 106 mmol/L (98-107) 11/04/19 03:00 Carbon Dioxide 27 mmol/L (21-32) 11/04/19 03:00 Anion Gap 9 MMOL/L (8-16) 11/04/19 03:00 BUN 12.7 mg/dL (7-18) 11/04/19 03:00 Creatinine 0.8 mg/dL (0.55-1.3) 11/04/19 03:00 Random Glucose 125 mg/dL (74-106) H 11/04/19 03:00 Calcium 9.1 mg/dL (8.5-10.1) 11/04/19 03:00 INR 1.01 (0.83-1.09) 11/04/19 03:00 A/P: 29 y/o F w/ PMHx asthma, PTSD, anxiety, bipolar depression, and IVDU/ polysubstance abuse (injects heroine/cocaine, PO xanax) now in ED with b/l antecubital wounds. B/L antecubital wounds from IVDU, open and draining with surrounding induration. RLE with multiple areas of induration no fluctuance. -No acute surgical intervention at this time -IV abx per ID -Local wound care with Santyl to LUE antecubital wound. RUE with Bacitracin, wrap b/l with 4x4s and kerlix -Monitor RLE closely for signs or worsening or drainable infection -Will follow d/w attending Dr Hay
[2019-11-04] MEDS: BACITRACIN 15 GM TUBE TOPICAL OINTMENT TP SCH (12:37)
--- NOTE | 2019-11-04 15:27 | CON.ID ---
Consult Consult Specialty:: infectious disease Referred by:: hospitalist service Reason for Consultation:: infected ulcers - History of Present Illness Chief Complaint: infected draining ulcers History of Present Illness: 29 yo female active injectin user for last 8 years- history of skin abscesses in the past, no endocarditis presented to er with draining antecubital ulcers and erythema of the right foot no fevers she was seen at [facility] and treated with po bactrim0 was she stopped 3 days ago doesnot share needles denies history of hiv or hepatitis cocaine/heroine/xanax use - History Source History Provided By: Patient, Medical Record Limitations to Obtaining History: No Limitations - Past Medical History Pulmonary: Yes: Asthma ...LMP: 06/09/19 Psych: Yes: Anxiety, Bipolar, Other (PTSD) - Alcohol/Substance Use Hx Alcohol Use: No - Smoking History Smoking history: Current every day smoker Have you smoked in the past 12 months: No - Social History Usual Living Arrangement: With Significant Other ADL: Independent [facility] of : [facility] History of Recent Travel: No Home Medications - Allergies Allergies/Adverse Reactions: Allergies Allergy/AdvReac Type Severity Reaction Status Date / Time No Known Drug Allergies Allergy Verified 11/04/19 02:19 raspberries Allergy Mild Swelling Uncoded 11/04/19 02:19 - Home Medications Home Medications: Ambulatory Orders NK [No Known Home Medication] 11/04/19 Family Medical History Family Hx Cancer: Mother (lung and breast cancer) Review of Systems - Review of Systems Constitutional: reports: No Symptoms Eyes: reports: No Symptoms HENT: reports: No Symptoms Neck: reports: No Symptoms Cardiovascular: reports: No Symptoms Respiratory: reports: No Symptoms Gastrointestinal: reports: No Symptoms Genitourinary: reports: No Symptoms Physical Exam Vital Signs: Vital Signs Temperature 97.8 F 11/04/19 09:44 Pulse Rate 88 11/04/19 09:44 Respiratory Rate 18 11/04/19 09:44 Blood Pressure 115/66 11/04/19 09:44 O2 Sat by Pulse Oximetry (%) 98 11/04/19 09:44 Constitutional: Yes: Well Nourished, Anxious (reports she is starting to withdraw) Eyes: Yes: Conjunctiva Clear, EOM Intact HENT: Yes: Atraumatic, Normocephalic. No: Thrush Neck: Yes: Supple, Trachea Midline Cardiovascular: Yes: Regular Rate and Rhythm Respiratory: Yes: Regular, CTA Bilaterally Gastrointestinal: Yes: Normal Bowel Sounds, Soft ...Rectal Exam: Yes: Deferred Renal/: No: Bladder Distention, CVA Tenderness - Left, CVA Tenderness - Right , Mcbride Present Extremities: Yes: Other (bilateral antecubial ulcers, left foot with erythema and track castelan no inguinal adenopathy) Edema: Yes (left foot) Psychiatric: Yes: Alert, Oriented Labs: CBC, BMP 11/04/19 03:00 11/04/19 03:00 cultures pending Imaging - Results Chest X-ray: Report Reviewed, Image Reviewed Problem List - Problems (1) Soft tissue infection Code(s): L08.9 - LOCAL INFECTION OF THE SKIN AND SUBCUTANEOUS TISSUE, UNSP (2) Elevated liver enzymes Code(s): R74.8 - ABNORMAL LEVELS OF OTHER SERUM ENZYMES (3) Polysubstance dependence including opioid drug with daily use Code(s): F11.20 - OPIOID DEPENDENCE, UNCOMPLICATED; F19.20 - OTHER PSYCHOACTIVE SUBSTANCE DEPENDENCE, UNCOMPLICATED Assessment/Plan bilateral antecubital wounds left foot and lower extremity edema/induration continue vancomycin/ceftriaxone check vancomycin trough before fourth dose abnormal lefts- check hep serology, check cpk wound care per surgery
[2019-11-04] MEDS ORDERED: HEPARIN NA (PORCINE) 5,000 UNITS/ML 1ML VIAL ONE (16:25)
[2019-11-04] MEDS ORDERED: diazePAM 5 MG TABLET ONE (16:25)
[2019-11-04] MEDS: COLLAGENASE CLOSTRIDIUM HIST. 30 GRAMS TUBE TP SCH (16:36)
[2019-11-04] MEDS: diazePAM 5 MG TABLET PO SCH ×2 (16:37→21:27)
[2019-11-04 18:46] VITALS: BMI 37.2
[2019-11-04] MEDS: VANCOMYCIN HCL 1,250 MG in DEXTROSE 5%-WATER - 250 ML IVPB SCH (19:58)
[2019-11-04] MEDS: MELATONIN 5 MG TABLETS PO PRN (22:27)
[2019-11-05] MEDS: diazePAM 5 MG TABLET PO PRN ×3 (03:11→16:28)
[2019-11-05] MEDS: HEPARIN NA (PORCINE) 5,000 UNITS/ML 1ML VIAL SQ SCH ×4 (06:06→21:21)
[2019-11-05] MEDS: diazePAM 5 MG TABLET PO SCH ×3 (06:47→21:21)
[2019-11-05] MEDS ORDERED: METHADONE HCL 5 MG TABLET PO ONE (10:00)
--- NOTE | 2019-11-05 10:39 | PN ---
Progress Note (short form) - Note Progress Note: Hospitalist medicine Resting in bed, still with withdrawal but improved. Awaiting AM methadone. With presumptive MRSA in blood Vitals 11/05/19 06:00 Temperature 98.3 F Pulse Rate 76 Respiratory 20 Rate Blood Pressure 128/81 Laboratory Tests 11/04/19 10:20 HIV 1&2 Antibody Screen Negative HIV P24 Antigen Negative 11/04/19 03:00 Opiates Screen Positive A* Methadone Screen Negative Barbiturate Screen Negative Phencyclidine Screen Negative Ur Amphetamines Screen Negative MDMA (Ecstasy) Screen Negative Benzodiazepines Screen Positive A* Cocaine Screen Positive A* U Marijuana (THC) Screen Negative Physical Exam GENERAL: AAOx 3, in no acute distress HEENT: NCAT, PERRLA. moist MM NECK: Normal range of motion, supple LUNGS: CTA b/l. No accessory muscle use. HEART: s1, s2 RRR. no r/m/g ABDOMEN: Soft, obese. nondistended UPPER EXTREMITIES: warm, b/l antecubital lesions, wounds. no d/c LOWER EXTREMITIES: medial LLE lesion 2x2cm. pulses intact, no edema NEURO: pre owned sales manager 2-12 grossly intact Microbiology 11/04/19 03:00 Urine - Urine Clean Catch Urine Culture - Preliminary Normal Urogenital Sondra 11/04/19 03:00 Blood - Peripheral Venous Blood Culture - Preliminary Presumptive Mrsa (Pbp2a Pos) 11/04/19 03:00 Blood - Peripheral Venous Blood Culture - Preliminary NO GROWTH OBTAINED AFTER 24 HOURS, INCUBATION TO CONTINUE FOR 4 DAYS. Imaging 11/04: Abd sono: negative w/ fatty infiltration vs. hepatocellular dz 11/04: CXR: (-) 11/05: ECHO: LVSF normal, LV EF normal, trace MR, insufficient TR detected to calculate RVSP Assessment/plan 29 y/o female PMH asthma, PTSD, anxiety, bipolar depression, and polysubstance ( injects heroine, injects cocaine, PO xanax) c/o BL UE lesions consistent with purulent cellulitis. # b/l antecubital wounds -w/ IVDA, presumptive MRSA bacteremia. ECHO w/only trace MR -empirically tx with cef, vanco (11/04) -f/u ucx, blood cx final read -per sx, no acute intervention needed. -wound care: santyl LUE, bacitracin RUE, wraps, kerlix -isolation contact -ID: Dr. Duke # Transaminitis -c/t monitor -without acute path on abd sono -f/u hep serologies - pending #Substance use d/o #Xanax, IV heroin, cocaine -in withdrawal, c/w methadone and valium protocol -clonidine PRN -psych: Dr. Cardona -will seek rehab after d/c; then will consult detox #PTSD, anxiety, bipolar -seen by psych: Dr. Cardona -no new recs at this time # F/E/N -encourage PO intake -continue to follow lytes -reg diet # DVT PPX - Heparin SQ # Disposition -cont'd monitoring on med/surg <Jalyn Jackman - Last Filed: 11/05/19 17:02> - Note Progress Note: Seen and examined; agree with above assessment and plan aside from as supplemented by myself below. I independently verified all padilla historical and PE findings along with labs, imaging, and diagnostics. I discussed the case at length with indicated consulting services and resident team. They continue to be ill and require inpatient medical care. Pending psychiatric consultation due to outbursts. I saw her shortly thereafter and she tells me that she is not suicidal and that she is just frustrated. She initially told me that she was prescribed valium as an outpatient and communicated this to nursing but rescinded this statement when I discussed it with her. Discussed getting substance abuse consultation with the resident and I was informed that traditionally they will be placed on a detox regimine and sent to [facility]. She is not having any clear physical WD symptoms at this time. When she is observed she will continue to have supratentorial tremors that occur only with observation. She is verbally abusive to nursing staff and is threatening to get everybody fired, write reports to regulatory agencies, and "destroy our lives." Informed that the male who is accompanying her is, in fact, not her father. Again, she refused exam. A/P: -Skin wounds, r/o abscess -1/2+ bottles for SA (contamination likely, repeating cultures) -Transaminitis -Polysubstance abuse with withdrawal -Psychaitric Illness (verified with her pharmacy that she has not filled seroquel, gabapentin in some time. Verified ISTOP and is not prescribed any Rx benzodiazapines, etc.) -outbursts Full Code <Rory Golden - Last Filed: 11/08/19 08:44>
--- NOTE | 2019-11-05 10:51 | CON.PSY ---
Psychiatry Consult Chief Complaint: Patient with ri2ceagz of mixed substance abuse admitted for infected wounds. Patient seen for Psychb eval. Getting medical workupand treatment. Essenrially a Substance abuser. - Previous Psychiatric Treatment Outpatient: None Inpatient: None - Previous Substance Abuse Treatment Outpatient: More than 6 mos ago Inpatient: Within the last 12 months - Reason for Previous Treatment Reason for Previous Treatment: Cocaine, Heroin or Other Narcotics - Current Medications Current Medications: Active Medications Acetaminophen (Tylenol -) 650 mg PO Q4H PRN PRN Reason: PAIN LEVEL 4 - 6 Bacitracin (Bacitracin -) 1 applic TP DAILY RONALDO Last Admin: 11/04/19 12:37 Dose: 1 applic Clonidine (Catapres -) 0.1 mg PO Q4H PRN PRN Reason: Withdrawal Symptoms Stop: 11/05/19 23:59 Collagenase (Santyl -) 1 applic TP DAILY RONALDO; Protocol Last Admin: 11/04/19 16:36 Dose: 1 applic Diazepam (Valium -) 5 mg PO TID RONALDO Stop: 11/05/19 22:01 Last Admin: 11/05/19 06:47 Dose: 5 mg Diazepam (Valium -) 5 mg PO Q12H RONALDO Stop: 11/06/19 18:01 Diazepam (Valium -) 5 mg PO ONCE ONE Stop: 11/07/19 06:01 Diazepam (Valium -) 10 mg PO Q4H PRN PRN Reason: WITHDRAWAL(CONT SUBST) Stop: 11/07/19 08:19 Last Admin: 11/05/19 03:11 Dose: 10 mg Heparin Sodium (Porcine) (Heparin -) 5,000 unit SQ TID RONALDO Last Admin: 11/05/19 06:06 Dose: Not Given Ceftriaxone Sodium 1 gm/ (Dextrose) 50 mls @ 100 mls/hr IVPB DAILY RONALDO Last Admin: 11/04/19 10:03 Dose: Not Given Vancomycin HCl 1,250 mg/ (Dextrose) 250 mls @ 166.667 mls/hr IVPB Q12H RONALDO; Protocol Last Admin: 11/04/19 19:58 Dose: 166.667 mls/hr Melatonin (Melatonin) 5 mg PO HS PRN PRN Reason: INSOMNIA Last Admin: 11/04/19 22:27 Dose: 5 mg Methadone HCl (Dolophine -) 10 mg PO ONCE ONE Stop: 11/06/19 10:01 Methadone HCl (Dolophine -) 5 mg PO ONCE ONE Stop: 11/07/19 06:01 - Allergies Allergies: Allergies Allergy/AdvReac Type Severity Reaction Status Date / Time No Known Drug Allergies Allergy Verified 11/04/19 02:19 raspberries Allergy Mild Swelling Uncoded 11/04/19 02:19 - Current Living Status Usual Living Arrangement: Alone - Current Mental Status Evaluation Appearance: Well Groomed Attitude: Cooperative - Affect Affect: Constrictive Appropriateness: Appropriate to Content - Mood Mood: Euthymic - Speech/Language Expressive: Coherent - Psychomotor Activity Psychomotor Activity: Normal - Thought Process Thought Process: Intact - Thought Content Hallucinations: Absent Delusions: Absent - Self Perception Self Perception: No Impairment - Cognition Attention: Alert Orientation: Time Memory, Immediate Recall: Intact Memory, Short Term: 3/3 Memory, Remote with Promptin/3 - Concentration Serial Sevens Intact: Yes Simple Calculations Intact: Yes - Abstraction Proverb Interpretation: Intact Judgement: Intact - Insight Insight: Intact - Impulse Control Impulse Control: Good Control - Suicidal Ideation Suicidal Ideation: No - Homicidal Ideation Homicidal Ideation: No Assessment/Plan !0 Continue with Medical care. 2) Substance abuse Consultation. 3) Discharge when medically stable.
[2019-11-05 11:33] LABS: BLOOD UREA NITROGEN 4.8 mg/dL (7-18); CALCIUM 8.8 mg/dL (8.5-10.1); CREATININE 0.6 mg/dL (0.55-1.3); PHOSPHOROUS 2.6 mg/dL (2.5-4.9); POTASSIUM 3.7 mmol/L (3.5-5.1)
[2019-11-05] MEDS ORDERED: cefTRIAXone SODIUM 1 GM VIAL ONE (13:02)
[2019-11-05] MEDS ORDERED: DEXTROSE 5%-WATER - 50 ML IVPB ONE (13:02)
[2019-11-05] MEDS: VANCOMYCIN HCL 1,250 MG in DEXTROSE 5%-WATER - 250 ML IVPB SCH (13:17)
[2019-11-05] MEDS: COLLAGENASE CLOSTRIDIUM HIST. 30 GRAMS TUBE TP SCH (13:22)
[2019-11-05] MEDS: BACITRACIN 15 GM TUBE TOPICAL OINTMENT TP SCH (13:24)
[2019-11-05 13:27] LABS: BASO % 1.1 % (0-2.0); EOS % 6.1 % (0-4.5); HEMATOCRIT 24.4 % (32.4-45.2); HEMOGLOBIN 7.6 GM/dL (10.7-15.3); LYMPH % 31.6 % (8-40); MEAN CELL VOLUME 54.4 fl (80-96); MEAN PLT VOLUME 9.5 fl (7.5-11.1); MONO % 7.3 % (3.8-10.2); NEUT % 53.9 % (42.8-82.8); PLATELET COUNT 426 K/MM3 (134-434); RBC 4.49 M/mm3 (3.60-5.2); RDW 18.2 % (11.6-15.6); WHITE BLOOD COUNT 8.1 K/mm3 (4.0-10.0)
[2019-11-05 13:30] LABS: MCH 16.9 pg (25.7-33.7)
--- NOTE | 2019-11-05 13:31 | ECHO ---
Name: HARESH ESTRADA Exam:Adult Echocardiogram Study Date: 11/05/2019 10:48 AM Age: 29 yrs Reason For Study: hx IVDA, possbile MRSA in blood Height: 63 in Weight: 210 lb BSA: 2.0 m2 MMode/2D Measurements & Calculations IVSd: 1.0 cm Ao root diam: 2.5 cm LVIDd: 3.8 cm LA dimension: 3.8 cm LVIDs: 2.7 cm ACS: 1.9 cm LVPWd: 0.96 cm EDV(Teich): 60.9 ml LVOT diam: 1.8 cm ESV(Teich): 27.6 ml RV S Prashant: 16.8 cm/sec Doppler Measurements & Calculations MV E max prashant: 90.3 cm/sec Ao V2 max: 142.3 cm/sec MV A max prashant: 88.4 cm/sec Ao max P.1 mmHg MV E/A: 1.0 Ao V2 mean: 104.3 cm/sec MV dec time: 0.21 sec Ao mean P.8 mmHg Ao V2 VTI: 30.1 cm KRISHAN(I,D): 2.0 cm2 KRISHAN(V,D): 2.0 cm2 LV V1 max P.3 mmHg SV(LVOT): 60.1 ml LV V1 mean P.1 mmHg LV V1 max: 115.0 cm/sec LV V1 mean: 81.5 cm/sec LV V1 VTI: 24.4 cm TR max prashant: 198.3 cm/sec PA V2 max: 77.5 cm/sec TR max P.7 mmHg PA max P.4 mmHg Med Peak E' Prashant: 12.5 cm/sec Med E/e': 7.2 Lat Peak E' Prashant: 12.8 cm/sec Lat E/e': 7.1 Procedure A two-dimensional transthoracic echocardiogram with color flow and Doppler was performed. Left Ventricle The left ventricular size, thickness and function are normal. The left ventricular ejection fraction is normal. Left Ventricular Filling pattern is normal for age. The left ventricular wall motion is delmy l. Right Ventricle The right ventricle is normal in size and function. Atria Normal left and right atrial size and function. Mitral Valve There is mild mitral valve thickening. There is no mitral valve stenosis. There is trace mitral regur gitation. Tricuspid Valve The tricuspid valve is not well visualized. There is no tricuspid stenosis. There was insufficient TR detected to calculate RV systolic pressure. Aortic Valve The aortic valve is not well visualized. No hemodynamically significant valvular aortic stenosis. No aortic regurgitation is present. Pulmonic Valve The pulmonic valve is not well visualized. Great Vessels The aortic root is normal size. Pericardium/Pleura There is no pericardial effusion. Interpretation Summary Clinical correlation is recommended. The left ventricular size, thickness and function are normal The left ventricular ejection fraction is normal. The left ventricular wall motion is normal. Left Ventricular Filling pattern is normal for age. There is trace mitral regurgitation. There was insufficient TR detected to calculate RV systolic pressure. Clinical correlation is recommended. MD Vivek Hayes 11/05/2019 01:31 PM
[2019-11-05] MEDS ORDERED: PT OWN MED DRAWER 7, Y5N ONE (13:54)
[2019-11-05] MEDS: CEFTRIAXONE 1 GM in DEXTROSE 5%-WATER - 50 ML IVPB SCH (16:03)
--- NOTE | 2019-11-05 17:21 | PN ---
Progress Note (short form) - Note Progress Note: no complaints wants to sleep Vital Signs Period Temp Pulse Resp BP Sys/López Pulse Ox Last 24 Hr 98.2 F-98.3 F 76-92 20-20 128-142/81-94 100-100 cor-rrr lungs clear abd soft, nt won't let me look at her leg antiecubs bilateral, still some erythema, no drainage noted CBC, BMP 11/05/19 09:38 11/05/19 09:38 Microbiology 11/04/19 18:10 Wound Gram Stain - Final 11/04/19 03:00 Urine - Urine Clean Catch Urine Culture - Preliminary Normal Urogenital Sondra 11/04/19 03:00 Blood - Peripheral Venous Blood Culture - Preliminary Presumptive Mrsa (Pbp2a Pos) 11/04/19 03:00 Blood - Peripheral Venous Blood Culture - Preliminary NO GROWTH OBTAINED AFTER 24 HOURS, INCUBATION TO CONTINUE FOR 4 DAYS. a/p presumptive MRSA bacteremia- echo, repeat blood cultures most likely from ulcers continue vancomycin, check level before fourth dose poly substance use abnl lfts- hep serology to include hep C hiv negative Problem List - Problems (1) Soft tissue infection Code(s): L08.9 - LOCAL INFECTION OF THE SKIN AND SUBCUTANEOUS TISSUE, UNSP (2) Elevated liver enzymes Code(s): R74.8 - ABNORMAL LEVELS OF OTHER SERUM ENZYMES (3) Polysubstance dependence including opioid drug with daily use Code(s): F11.20 - OPIOID DEPENDENCE, UNCOMPLICATED; F19.20 - OTHER PSYCHOACTIVE SUBSTANCE DEPENDENCE, UNCOMPLICATED
[2019-11-05] MEDS: MELATONIN 5 MG TABLETS PO PRN (21:21)
[2019-11-06] MEDS: VANCOMYCIN HCL 1,250 MG in DEXTROSE 5%-WATER - 250 ML IVPB SCH ×2 (00:43→14:54)
[2019-11-06] MEDS ORDERED: cloNIDine HCL 0.1 MG TABLET PO ONE (01:24)
[2019-11-06] MEDS: diazePAM 5 MG TABLET PO PRN ×4 (01:25→21:13)
[2019-11-06] MEDS: HEPARIN NA (PORCINE) 5,000 UNITS/ML 1ML VIAL SQ SCH ×3 (05:59→21:04)
[2019-11-06] MEDS: diazePAM 5 MG TABLET PO SCH ×2 (05:59→17:56)
[2019-11-06] MEDS: COLLAGENASE CLOSTRIDIUM HIST. 30 GRAMS TUBE TP SCH (09:59)
[2019-11-06] MEDS: BACITRACIN 15 GM TUBE TOPICAL OINTMENT TP SCH (09:59)
[2019-11-06] MEDS ORDERED: METHADONE HCL 10 MG TABLET PO ONE (10:00)
--- NOTE | 2019-11-06 11:11 | PN ---
Progress Note (short form) - Note Progress Note: Hospitalist medicine Sleeping, does not want to be disturbed this AM. Vitals 11/06/19 06:00 Temperature 97.8 F Pulse Rate 71 Respiratory 20 Rate Blood Pressure 134/98 Physical Exam refused this AM Laboratory Tests 11/04/19 10:20 HIV 1&2 Antibody Screen Negative HIV P24 Antigen Negative 11/04/19 03:00 Opiates Screen Positive A* Methadone Screen Negative Barbiturate Screen Negative Phencyclidine Screen Negative Ur Amphetamines Screen Negative MDMA (Ecstasy) Screen Negative Benzodiazepines Screen Positive A* Cocaine Screen Positive A* U Marijuana (THC) Screen Negative 11/05/19 16:00 Hep A IgM Ab Confirm Pending Hep Bs Antigen Pending Hep B Core IgM Ab Pending Hepatitis C Ab (EIA) Pending Microbiology 11/04/19 03:00 Urine - Urine Clean Catch Urine Culture - Preliminary Normal Urogenital Sondra 11/04/19 03:00 Blood - Peripheral Venous Blood Culture - Preliminary Presumptive Mrsa (Pbp2a Pos) 11/04/19 03:00 Blood - Peripheral Venous Blood Culture - Preliminary NO GROWTH OBTAINED AFTER 24 HOURS, INCUBATION TO CONTINUE FOR 4 DAYS. Imaging 11/04: Abd sono: negative w/ fatty infiltration vs. hepatocellular dz 11/04: CXR: (-) 11/05: ECHO: LVSF normal, LV EF normal, trace MR, insufficient TR detected to calculate RVSP Assessment/plan 29 y/o female PMH asthma, PTSD, anxiety, bipolar depression, and polysubstance ( injects heroine, injects cocaine, PO xanax) c/o BL UE lesions consistent with purulent cellulitis. # b/l antecubital wounds -w/ IVDA, presumptive MRSA bacteremia. ECHO w/only trace MR -empirically tx with cef, vanco (11/04) -f/u vanco trough, prior to 4th dose (once consistent dosing) -f/u repeat blood cx -refusing drainage of wounds -per sx, no acute intervention needed. -wound care: santyl LUE, bacitracin RUE, wraps, kerlix -isolation contact -ID: Dr. Duke # Transaminitis -c/t monitor -without acute path on abd sono -f/u hep serologies - pending #Substance use d/o #Xanax, IV heroin, cocaine -in withdrawal, c/w methadone and valium protocol -clonidine PRN, started on vistaril -psych: Dr. Cardona -will seek rehab after d/c; then will consult detox #PTSD, anxiety, bipolar -seen by psych: Dr. Cardona -no new recs at this time -restarted on seroquel # F/E/N -encourage PO intake -continue to follow lytes -reg diet # DVT PPX - Heparin SQ # Disposition -cont'd monitoring on med/surg on IV abx however refusing abscess drainage, further tx <Jalyn Jackman - Last Filed: 11/06/19 18:13> - Note Progress Note: Seen and examined; agree with above assessment and plan aside from as supplemented by myself below. I independently verified all padilla historical and PE findings along with labs, imaging, and diagnostics. I discussed the case at length with indicated consulting services and resident team. They continue to be ill and require inpatient medical care. Had another outburst accusing us of witholding psychiatric medications. I explained to her that I can restart her seroquel if she wishes but she had not communicated such a desire prior. She is agreeable. She will also be started on clonidine and hydroxyzine for PRN management. Pain is improved. Reiterates over and over that she "wants to get better so her arm doesn't fall off." 10 sys ROS done and negative aside from HPI Again, she refused exam. A/P: -Skin wounds, r/o abscess -1/2+ bottles for SA (contamination likely, repeating cultures) -Transaminitis -Polysubstance abuse with withdrawal -Psychaitric Illness (verified with her pharmacy that she has not filled seroquel, gabapentin in some time. Verified ISTOP and is not prescribed any Rx benzodiazapines, etc.) -outbursts Full Code <Rory Golden - Last Filed: 11/08/19 08:47>
[2019-11-06] MEDS: cloNIDine HCL 0.1 MG TABLET PO SCH ×2 (14:13→21:10)
--- NOTE | 2019-11-06 14:33 | PN ---
Progress Note (short form) - Note Progress Note: Pt seen for follow up. B/L antecubital fossa appear slightly improved, LLE with multiple areas of induration in thigh, no fluctuance appreciated. L ankle with approx 1.5x1.5cm abscess to L medial malleolus, pt adamently refusing examination or drainage of abscess stating "it will pop like it always does". Pt agitated regarding detox and psych meds, threatening to leave AMA. Extensive discussion with pt regarding need for further antibiotics and wound care. Pt informed risks of further infection inclusing but not limited to sepsis, delayed wound healing, potential for osteomyelitis, need for surgical debridements and in worse case amputation for untreated infections. Pt verbalized understanding. States she will try to stay, requesting adjustment to current meds. Resident notified. d/w attending Dr Hay
[2019-11-06] MEDS: hydrOXYzine PAMOATE 25 MG CAPSULE (FP) PO PRN (15:07)
[2019-11-06] MEDS: MELATONIN 5 MG TABLETS PO PRN (21:10)
[2019-11-06] MEDS ORDERED: QUEtiapine FUMARATE 25 MG TABLET (FP) PO SCH (22:00)
[2019-11-06] MEDS ORDERED: PT OWN MED DRAWER 7, Y5N ONE (23:05)
[2019-11-07] MEDS: VANCOMYCIN HCL 1,250 MG in DEXTROSE 5%-WATER - 250 ML IVPB SCH ×2 (01:13→13:10)
[2019-11-07] MEDS: diazePAM 5 MG TABLET PO PRN ×2 (01:23→09:05)
[2019-11-07] MEDS: HEPARIN NA (PORCINE) 5,000 UNITS/ML 1ML VIAL SQ SCH ×2 (05:54→14:32)
[2019-11-07] MEDS ORDERED: METHADONE HCL 5 MG TABLET PO ONE (06:00)
[2019-11-07] MEDS ORDERED: diazePAM 5 MG TABLET PO ONE (06:00)
[2019-11-07] MEDS ORDERED: PT OWN MED DRAWER 7, Y5N ONE ×3 (06:30→13:08)
[2019-11-07] MEDS: hydrOXYzine PAMOATE 25 MG CAPSULE (FP) PO PRN ×2 (06:31→13:10)
[2019-11-07] MEDS: cloNIDine HCL 0.1 MG TABLET PO SCH (09:05)
[2019-11-07] MEDS: BACITRACIN 15 GM TUBE TOPICAL OINTMENT TP SCH (09:06)
[2019-11-07 09:47] LABS: BASO % 1.3 % (0-2.0); EOS % 6.7 % (0-4.5); HEMOGLOBIN 8.7 GM/dL (10.7-15.3); LYMPH % 36.9 % (8-40); MEAN CELL VOLUME 53.9 fl (80-96); MEAN PLT VOLUME 9.1 fl (7.5-11.1); MONO % 8.1 % (3.8-10.2); PLATELET COUNT 526 K/MM3 (134-434); RDW 18.6 % (11.6-15.6); WHITE BLOOD COUNT 8.9 K/mm3 (4.0-10.0)
[2019-11-07 09:59] LABS: MCH 16.7 pg (25.7-33.7)
[2019-11-07 10:19] LABS: BLOOD UREA NITROGEN 11.5 mg/dL (7-18); CALCIUM 9.4 mg/dL (8.5-10.1); CREATININE 0.6 mg/dL (0.55-1.3); MAGNESIUM 2.1 mg/dL (1.8-2.4); PHOSPHOROUS 3.9 mg/dL (2.5-4.9); POTASSIUM 4.2 mmol/L (3.5-5.1)
--- NOTE | 2019-11-07 10:29 | PN ---
Progress Note (short form) - Note Progress Note: Hospitalist medicine sleeping, does not want to be woken up. threatening to leave "AMA later tonight. " care plan described by team to pt in detail, all questions answered Vitals 11/07/19 09:00 Temperature 97.9 F Pulse Rate 83 Respiratory 20 Rate Blood Pressure 114/76 Physical Exam refused this AM Laboratory Tests 11/04/19 10:20 HIV 1&2 Antibody Screen Negative HIV P24 Antigen Negative 11/04/19 03:00 Opiates Screen Positive A* Methadone Screen Negative Barbiturate Screen Negative Phencyclidine Screen Negative Ur Amphetamines Screen Negative MDMA (Ecstasy) Screen Negative Benzodiazepines Screen Positive A* Cocaine Screen Positive A* U Marijuana (THC) Screen Negative 11/05/19 16:00 Hep A IgM Ab Confirm Pending Hep Bs Antigen Pending Hep B Core IgM Ab Pending Hepatitis C Ab (EIA) Pending Microbiology 11/04/19 18:10 Wound Gram Stain - Final 11/04/19 03:00 Urine - Urine Clean Catch Urine Culture - Final Normal Urogenital Sondra 11/04/19 03:00 Blood - Peripheral Venous Blood Culture - Final Mr S Aureus 11/04/19 18:10 Wound Wound Culture - Preliminary Presumptive Mrsa (Pbp2a Pos) 11/04/19 03:00 Blood - Peripheral Venous Blood Culture - Preliminary NO GROWTH OBTAINED AFTER 72 HOURS, INCUBATION TO CONTINUE FOR 2 DAYS. Imaging 11/04: Abd sono: negative w/ fatty infiltration vs. hepatocellular dz 11/04: CXR: (-) 11/05: ECHO: LVSF normal, LV EF normal, trace MR, insufficient TR detected to calculate RVSP Assessment/plan 29 y/o female PMH asthma, PTSD, anxiety, bipolar depression, and polysubstance ( injects heroine, injects cocaine, PO xanax) c/o BL UE lesions consistent with purulent cellulitis. # b/l antecubital wounds -w/ IVDA, presumptive MRSA bacteremia. ECHO w/only trace MR -empirically tx with cef, vanco (11/04) -f/u vanco trough, prior to 4th dose (tomorrow afternoon) -f/u repeat blood cx -would need DARNELL, refusing -refusing drainage of wounds -per sx, no acute intervention needed. -wound care: santyl LUE, bacitracin RUE, wraps, kerlix -isolation contact -ID: Dr. Duek # Transaminitis -c/t monitor -without acute path on abd sono -hep C Ab (+) #Substance use d/o #Xanax, IV heroin, cocaine -c/w valium protocol; restarted on 5mg q3h -clonidine PRN, on vistaril -psych: Dr. Rogers -detox has been consulted: Dr. Barahona #PTSD, anxiety, bipolar -seen by psych: Dr. Rogers -no new recs at this time -restarted seroquel (low dose) # F/E/N -encourage PO intake -continue to follow lytes -reg diet # DVT PPX - Heparin SQ # Disposition -cont'd monitoring on med/surg on IV abx however refusing abscess drainage, further tx threatening to leave AMA tonight <Jalyn Jackman - Last Filed: 11/07/19 16:25> - Note Progress Note: Seen and examined; agree with above assessment and plan aside from as supplemented by myself below. I independently verified all padilla historical and PE findings along with labs, imaging, and diagnostics. I discussed the case at length with indicated consulting services and resident team. They continue to be ill and require inpatient medical care. Additional outbursts from her and her male electrician shop (confirmed not her father. He states he is health care proxy and she doesn't correct him). Again is refusing to cooportate with medical care and is continually inappropriate with staff. I explained to her again that this was not appropriate. After that she got the 9AM valium with next dose due at 1. At 115 she began to have an additional outburst demanding additional valium. She states she was having withdrawl symptoms and began having tremors that ceased with lack of observation as well as non-specific body jerks that followed this pattern as well. I went with the resident and Dr. Duke to speak with her after an initial conversation with her and the floor nurse project manager entertainment and media, and this time her male electrician shop and continued to interrupt medical care. We are pending evaluation from substance abuse at [facility]. Her male electrician shop continued to interrupt us to the point where conversation was unable to be had, declaring that "So what, I have MRSA and CDiff over my whole (explicit) body" before the patient declared she was not interested in further medical care and was not interested in staying in the hospital but would decide shortly. I counseled her and left, offering an additional PRN dose of valium which was declined at that juncture. She has no new complaints. I later recieved a call from administration as her male partner cindy found banging on the windows by the [employer] office. 10 sys ROS done and negative aside from HPI Again, she refused exam. A/P: -Skin wounds, r/o abscess -1/2+ bottles for SA (contamination likely, repeating cultures) -Transaminitis -Polysubstance abuse with withdrawal -Psychaitric Illness (verified with her pharmacy that she has not filled seroquel, gabapentin in some time. Verified ISTOP and is not prescribed any Rx benzodiazapines, etc.) -outbursts Full Code <Rory Golden - Last Filed: 11/08/19 08:54>
[2019-11-07] MEDS: COLLAGENASE CLOSTRIDIUM HIST. 30 GRAMS TUBE TP SCH (13:11)
[2019-11-07] MEDS ORDERED: diazePAM 5 MG TABLET PO PRN ×3 (13:49→16:28)
[2019-11-07 14:06] VITALS: BP 125/75; PULSE 99; TEMP 98
[2019-11-07 14:13] LABS: ANISOCYTOSIS 1+; MACROCYTOSIS 0; PLATELET ESTIMATE INCREASED
--- NOTE | 2019-11-07 14:24 | PN ---
Progress Note (short form) - Note Progress Note: I have not been able to examine Angel yesterday or today- she refuses she is aware she has MRSA bacteremia- a serious life threatening infection would get a vancomycin trough tomorrow before her afternoon dose if she permits would f/u repeat blood cultures would ideally need a DARNELL not sure if she has an abscess on her leg???- she refuses to let me look- ideally it should be drained will follow prn- please call back as needed Problem List - Problems (1) Soft tissue infection Code(s): L08.9 - LOCAL INFECTION OF THE SKIN AND SUBCUTANEOUS TISSUE, UNSP (2) Elevated liver enzymes Code(s): R74.8 - ABNORMAL LEVELS OF OTHER SERUM ENZYMES (3) Polysubstance dependence including opioid drug with daily use Code(s): F11.20 - OPIOID DEPENDENCE, UNCOMPLICATED; F19.20 - OTHER PSYCHOACTIVE SUBSTANCE DEPENDENCE, UNCOMPLICATED
--- NOTE | 2019-11-07 18:44 | DS ---
Physical Exam: SUBJECTIVE: Pt eloped this afternoon. OBJECTIVE: Vital Signs Period Temp Pulse Resp BP Sys/López Pulse Ox Last 24 Hr 97.2 F-98.1 F 77-99 20-20 113-125/66-76 100 PHYSICAL EXAM refused LABS Laboratory Results - last 24 hr 11/05/19 11/07/19 11/07/19 16:00 09:20 09:20 WBC 8.9 RBC 5.20 Hgb 8.7 L Hct 28.0 L MCV 53.9 L MCH 16.7 L MCHC 31.0 L RDW 18.6 H Plt Count 526 H D MPV 9.1 Absolute Neuts (auto) 4.2 Neutrophils % 47.0 Lymphocytes % 36.9 Monocytes % 8.1 Eosinophils % 6.7 H Basophils % 1.3 Nucleated RBC % 0 Hypochromia 2+ Platelet Estimate Increased Polychromasia 1+ Poikilocytosis 1+ Anisocytosis 1+ Microcytosis 1+ Macrocytosis 0 Sodium 138 Potassium 4.2 Chloride 104 Carbon Dioxide 28 Anion Gap 5 L BUN 11.5 Creatinine 0.6 Est GFR (CKD-EPI)AfAm 141.76 Est GFR (CKD-EPI)NonAf 122.31 Random Glucose 96 Calcium 9.4 Phosphorus 3.9 Magnesium 2.1 Hep A IgM Ab Confirm Negative Hep Bs Antigen Negative Hep B Core IgM Ab Negative Hepatitis C Ab (EIA) >11.0 H 11/04/19 11/04/19 11/05/19 03:00 10:20 09:38 WBC 10.1 H 8.1 Hgb 7.7 L 7.6 L Hct 24.8 L 24.4 L Plt Count 473 H 426 Hep A IgM Ab Confirm Hep Bs Antigen Hep B Core IgM Ab Hepatitis C Ab (EIA) HIV 1&2 Antibody Screen Negative HIV P24 Antigen Negative 11/05/19 11/07/19 16:00 09:20 WBC 8.9 Hgb 8.7 L Hct 28.0 L Plt Count 526 H D Hep A IgM Ab Confirm Negative Hep Bs Antigen Negative Hep B Core IgM Ab Negative Hepatitis C Ab (EIA) >11.0 H HIV 1&2 Antibody Screen HIV P24 Antigen 11/04/19 11/04/19 11/05/19 03:00 03:00 09:38 AST 52 H ALT 80 H Troponin I < 0.02 Total Protein 8.2 Albumin 3.1 L TSH 1.50 11/04/19 03:00 Opiates Screen Positive A* Methadone Screen Negative Barbiturate Screen Negative Phencyclidine Screen Negative Ur Amphetamines Screen Negative MDMA (Ecstasy) Screen Negative Benzodiazepines Screen Positive A* Cocaine Screen Positive A* 11/04/19 11/05/19 10:20 16:00 HIV 1&2 Antibody Screen Negative HIV P24 Antigen Negative Microbiology 11/04/19 18:10 Wound Gram Stain - Final 11/04/19 03:00 Urine - Urine Clean Catch Urine Culture - Final Normal Urogenital Sondra 11/04/19 03:00 Blood - Peripheral Venous Blood Culture - Final S Aureus 11/04/19 18:10 Wound Wound Culture - Preliminary Presumptive Mrsa (Pbp2a Pos) 11/04/19 03:00 Blood - Peripheral Venous Blood Culture - Preliminary NO GROWTH OBTAINED AFTER 72 HOURS, INCUBATION TO CONTINUE FOR 2 DAYS. Imaging 11/04: Abd sono: negative w/ fatty infiltration vs. hepatocellular dz 11/04: CXR: (-) 11/05: ECHO: LVSF normal, LV EF normal, trace MR, insufficient TR detected to calculate RVSP HOSPITAL COURSE: Date of Admission:11/04/19 Date of Discharge: 11/07/19 29 y/o female PMH asthma, PTSD, anxiety, bipolar depression, and polysubstance ( injects heroine, injects cocaine, PO xanax) c/o BL UE lesions consistent with purulent cellulitis. # b/l antecubital wounds -w/ IVDA, presumptive MRSA bacteremia. ECHO w/only trace MR -empirically tx with cef, vanco (11/04) -f/u vanco trough, prior to 4th dose (tomorrow afternoon) -f/u repeat blood cx -would need DARNELL, refusing -refusing drainage of wounds -per sx, no acute intervention needed. -wound care: santyl LUE, bacitracin RUE, wraps, kerlix -isolation contact # Transaminitis -c/t monitor -without acute path on abd sono -hep C Ab (+) #Substance use d/o #Xanax, IV heroin, cocaine -c/w valium protocol; restarted on 5mg q3h -clonidine PRN, on vistaril -psych: Dr. Rogers -detox has been consulted: Dr. Barahona #PTSD, anxiety, bipolar -seen by psych: Dr. Rogers -no new recs at this time -restarted seroquel (low dose) # Disposition pt eloped Minutes to complete discharge: 45 <Jalyn Jackman - Last Filed: 11/07/19 18:44> Physical Exam: SUBJECTIVE: Patient seen and examined OBJECTIVE: Vital Signs Period Temp Pulse Resp BP Sys/López Pulse Ox Last 24 Hr 97.9 F-98.0 F 83-99 20-20 114-125/75-76 PHYSICAL EXAM GENERAL: The patient is awake, alert, and fully oriented, in no acute distress. HEAD: Normal with no signs of trauma. EYES: PERRL, extraocular movements intact, sclera anicteric, conjunctiva clear. ENT: Ears normal, nares patent, oropharynx clear without exudates, moist mucous membranes. NECK: Trachea midline, full range of motion, supple. LUNGS: Breath sounds equal, clear to auscultation bilaterally, no wheezes, no crackles, no accessory muscle use. HEART: Regular rate and rhythm, S1, S2 without murmur, rub or gallop. ABDOMEN: Soft, nontender, nondistended, normoactive bowel sounds, no guarding, no rebound, no hepatosplenomegaly, no masses. EXTREMITIES: 2+ pulses, warm, well-perfused, no edema. NEUROLOGICAL: Cranial nerves II through XII grossly intact. Normal speech, gait not observed. PSYCH: Normal mood, normal affect. SKIN: Warm, dry, normal turgor, no rashes or lesions noted. LABS Laboratory Results - last 24 hr 11/07/19 11/07/19 09:20 09:20 WBC 8.9 RBC 5.20 Hgb 8.7 L Hct 28.0 L MCV 53.9 L MCH 16.7 L MCHC 31.0 L RDW 18.6 H Plt Count 526 H D MPV 9.1 Absolute Neuts (auto) 4.2 Neutrophils % 47.0 Lymphocytes % 36.9 Monocytes % 8.1 Eosinophils % 6.7 H Basophils % 1.3 Nucleated RBC % 0 Hypochromia 2+ Platelet Estimate Increased Polychromasia 1+ Poikilocytosis 1+ Anisocytosis 1+ Microcytosis 1+ Macrocytosis 0 Sodium 138 Potassium 4.2 Chloride 104 Carbon Dioxide 28 Anion Gap 5 L BUN 11.5 Creatinine 0.6 Est GFR (CKD-EPI)AfAm 141.76 Est GFR (CKD-EPI)NonAf 122.31 Random Glucose 96 Calcium 9.4 Phosphorus 3.9 Magnesium 2.1 HOSPITAL COURSE: Date of Admission:11/04/19 Date of Discharge: 11/08/19 <Rory Golden - Last Filed: 11/08/19 08:56> Discharge Summary Problems reviewed: Yes Reason For Visit: COCAINE DEPENDENCE, CELLULITIS, INTRVENOUS DRUG - Home Medications Comprehensive Discharge Medication List: Ambulatory Orders NK [No Known Home Medication] 11/04/19 <Jalyn Jackman - Last Filed: 11/07/19 18:44> Problems reviewed: Yes - Home Medications Comprehensive Discharge Medication List: Ambulatory Orders NK [No Known Home Medication] 11/04/19 <Rory Golden - Last Filed: 11/08/19 08:56> - Instructions Disposition: ELOPED This patient is new to me today: No Emergency Visit: No Critical Care patient: No - Discharge Referral Referred to [facility] No <Jalyn Jackman - Last Filed: 11/07/19 18:44> This patient is new to me today: No Emergency Visit: No Critical Care patient: No - Discharge Referral Referred to [facility] No <Rory Golden - Last Filed: 11/08/19 08:56> Please refer to today's progress note for further information; patient left AMA. <Rory Golden - Last Filed: 11/08/19 08:56>
== END 2019-11-07 17:58 | disposition left against medical advice (07) | DRG 383 ==
LOC: JER 01:56 → JERBED 05:30 → J5S 17:19 → J6S 11-05 20:03
PROVIDERS: ADMIT Internal Medicine; ATTEND Internal Medicine
DX: L03.114 Cellulitis of left upper limb (principal); L08.9 Local infection of the skin and subcutaneous tissue, unspecified; N39.0 Urinary tract infection, site not specified; F17.210 Nicotine dependence, cigarettes, uncomplicated; F10.20 Alcohol dependence, uncomplicated; F10.230 Alcohol dependence with withdrawal, uncomplicated; F13.20 Sedative, hypnotic or anxiolytic dependence, uncomplicated; F43.10 Post-traumatic stress disorder, unspecified; F41.9 Anxiety disorder, unspecified; L02.416 Cutaneous abscess of left lower limb; R74.0 Nonspecific elevation of levels of transaminase and lactic acid dehydrogenase [LDH]; E87.6 Hypokalemia; E66.9 Obesity, unspecified; Z68.37 Body mass index [BMI] 37.0-37.9, adult; D64.9 Anemia, unspecified; F31.9 Bipolar disorder, unspecified; R74.8 Abnormal levels of other serum enzymes; R78.81 Bacteremia; B95.62 Methicillin resistant Staphylococcus aureus infection as the cause of diseases classified elsewhere; F11.20 Opioid dependence, uncomplicated
CPT/HCPCS: 36415; 71045-TC-FY; 76705-TC; 80048; 80053; 80074; 80307; 81003; 82550; 82728; 82803; 83540; 83550; 83605; 83735; 84100; 84443; 84484; 85025; 85610; 85730; 87040; 87070; 87086; 87186; 87205; 87389; 93005; 93010; 93306-TC; 99285-25; G0480; J0735; J1644; J1756; J7030